=== PATIENT | female | born 1950 | race Caucasian/White ===

== ENCOUNTER 2020-05-28 16:07 | Outpatient (REF) | payer MEDICARE, SELFPAY | END 2020-05-28 16:08 | disposition home or self-care (01) | LOC: HO.LAB 16:07 | PROVIDERS: PCP Internal Medicine; Visit Provider Internal Medicine | DX: Z20.828 Contact with and (suspected) exposure to other viral communicable diseases (principal) | CPT/HCPCS: C9803; U0003 ==

== ENCOUNTER 2022-03-29 12:23 | Outpatient (REF) | payer MEDICARE, MEDICAID, SELFPAY ==
--- NOTE | ~2022-03-29 | XR_ITS ---
EXAMINATION: KNEE X-RAY CLINICAL INFORMATION: Right knee pain COMPARISON: Previous MRI January 2022 TECHNIQUE: Standing AP view of both knees and lateral and sunrise view of the right knee FINDINGS: Right: Bone alignment is normal. No fracture or dislocation is seen. Joint spaces are normal. There is no joint effusion. Standing AP view of the left knee is unremarkable. XR/XR knee RT 2V IMPRESSION: Unremarkable exam
--- NOTE | ~2022-03-29 | XR_ITS ---
EXAMINATION: KNEE X-RAY CLINICAL INFORMATION: Right knee pain COMPARISON: Previous MRI January 2022 TECHNIQUE: Standing AP view of both knees and lateral and sunrise view of the right knee FINDINGS: Right: Bone alignment is normal. No fracture or dislocation is seen. Joint spaces are normal. There is no joint effusion. Standing AP view of the left knee is unremarkable. XR/XR knee standing BI IMPRESSION: Unremarkable exam
== END 2022-03-29 12:24 | disposition home or self-care (01) ==
LOC: HO.HOSX 12:23
PROVIDERS: Visit Provider Physician Assistant
DX: M17.11 Unilateral primary osteoarthritis, right knee (principal); M25.562 Pain in left knee
CPT/HCPCS: 20610; 73560; 73565; 99202; J1020

== ENCOUNTER 2022-10-01 22:32 | Emergency (ER) | payer MEDICARE, MEDICAID, SELFPAY ==
--- NOTE | ~2022-10-01 | XR_ITS ---
EXAMINATION: XR CHEST CLINICAL INFORMATION: Cough COMPARISON: None available. TECHNIQUE: 2 views of the chest were obtained. FINDINGS: The lungs are well expanded. There is no focal consolidation, edema, or effusion. No pneumothorax. The cardiomediastinal silhouette is within normal limits. No acute osseous abnormality. XR/XR chest 2V IMPRESSION: Clear lungs.
[2022-10-01 22:36] VITALS: BP 138/87; PULSE 103; RESP 20; TEMP 36.5; O2SAT 93; BMI 27.8
[2022-10-01 23:45] VITALS: BP 114/73; PULSE 92; RESP 16; O2SAT 93
[2022-10-02 00:52] LABS: Basophils Percent Auto 0.5 % (0-2); Eosinophils Absolute Auto 0.1 X10*3/uL (0.0-0.4); Eosinophils Percent Auto 1.9 % (0-4); Hematocrit 37.7 % (37.0-47.0); Hemoglobin 13.2 g/dl (12.0-16.0); Imm Gran Abs Auto 0.01 X10*3/uL (0.00-0.03); Imm Gran Pct Auto 0.2 % (0.0-0.4); Lymphocytes Absolute Auto 1.6 X10*3/uL (1.2-4.9); MANUAL DIFF FLAG SCAN; Mean Corpuscular Hemoglobin 28.6 pg (27.0-33.0); Mean Corpuscular Volume 81.8 fL (80.0-98.0); Mean Platelet Volume 9.7 fL (9.4-12.3); Monocytes Absolute Auto 0.4 X10*3/uL (0.1-1.2); Monocytes Percent Auto 9.3 % (2-11); Neutrophils Absolute Auto 2.2 x10*3/uL (2.0-8.3); Neutrophils Percent Auto 50.1 % (45-73); Platelet Count 161 X10*3/uL (160-400); Red Blood Count 4.61 X10*6/uL (4.20-5.50); Red Cell Distribution Width 13.1 % (11.0-16.0); SCAN SMEAR FLAG 1; White Blood Count 4.3 X10*3/uL (4.8-10.8)
[2022-10-02 01:04] VITALS: PULSE 90; RESP 16; O2SAT 93
[2022-10-02 01:11] LABS: Alanine Aminotransferase 25 U/L (0-31); Albumin Level 4.2 g/dL (3.5-5.0); Alkaline Phosphatase 128 U/L (39-117); Anion Gap 19 (12-20); Aspartate Amino Transferase 27 U/L (5-31); Bilirubin Total 0.9 mg/dL (0.0-1.0); Blood Urea Nitrogen 11 mg/dL (9-16); Calcium 8.9 mg/dL (8.4-10.2); Carbon Dioxide 23 mmol/L (22-29); Chloride 100 mmol/L (96-108); Estimated Glomerular Filt Rate > 60; Glucose Random 208 mg/dL (60-115); Potassium 3.6 mmol/L (3.3-5.1); Sodium 138 mmol/L (135-145); Total Protein 7.1 g/dL (6.5-8.0)
[2022-10-02 01:23] LABS: SLIDE REVIEW VERIFIED
[2022-10-02 01:33] LABS: Influenza A PCR NEGATIVE (Negative); Influenza B PCR NEGATIVE (Negative); Resp Syncy Virus RNA Qual PCR NEGATIVE (Negative); SARS COV2 PCR INHOUSE NEGATIVE (Negative)
--- NOTE | 2022-10-02 01:38 | ED.GENADULT ---
HPI - General Adult General Chief complaint: General Medical Stated complaint: Cough Time Seen by Provider: 10/02/22 00:05 Source: patient Mode of arrival: ambulatory Limitations: no limitations History of Present Illness HPI narrative: Patient past medical history of hypertension, diabetes, been coughing for last 1 week seen at urgent care center prescribed albuterol inhaler no antibiotic or prednisone given patient continued to been coughing a low-grade fever and upper back pain patient tested for COVID negative Related Data Home Medications Medication Instructions Recorded Confirmed atorvastatin 40 mg tablet 40 mg PO DAILY 03/29/22 03/29/22 metformin 500 mg tablet 500 mg PO DAILY 03/29/22 03/29/22 metoprolol succinate 50 mg 50 mg PO DAILY 03/29/22 03/29/22 tablet,extended release 24 hr omeprazole 20 mg capsule,delayed 20 mg PO DAILY 03/29/22 03/29/22 release oxycodone 10 mg tablet 10 mg PO BID PRN 03/29/22 03/29/22 Previous Rx's Medication Instructions Recorded cefuroxime axetil 500 mg tablet 500 mg PO BID #20 tabs 10/02/22 codeine 10 mg-guaifenesin 100 mg/5 10 ml PO Q6H PRN cough #237 mL 10/02/22 mL oral liquid doxycycline hyclate 100 mg tablet 100 mg PO BID #20 tabs 10/02/22 prednisone 20 mg tablet 40 mg PO DAILY #10 tabs 10/02/22 Allergies Allergy/AdvReac Type Severity Reaction Status Date / Time No Known Allergies Allergy Mild N/A Unverified 03/29/22 14:34 Review of Systems Review of Systems: Constitutional : No Weight loss, + Fever, No Chills ENT/Mouth : No sore throat, No Rhinorrhea Eyes: No Eye Pain, No Swelling Cardiovascular : No Chest Pain, no palpitations Respiratory : ++Cough, No Sputum, + shortness of breath Gastrointestinal : no Nausea, No Vomiting, No Diarrhea, No abdominal Pain, no black stools Genitourinary : No Dysuria, No Urinary Frequency Musculoskeletal : No joint pain, No Myalgias, No Joint Swelling Skin : No Skin Lesions, No rash Neuro : No Weakness, No Numbness, No Dizziness, No Headache Psych : No Anxiety/Panic, No Depression Heme/Lymph: No Bruising, No Lymphadenopathy Endocrine : No Polyuria, No Polydipsia All other systems reviewed and are negative Yes all other systems are reviewed and are negative [facility] Social History Social History Alcohol intake: never Smoked in Last 30 Days: No Use of substances other than those prescribed or required for medical reasons: No Advance Directives: No Advance Directives Information Provided: No Current occupational status: retired Current occupation: right handed Physical Exam ED Vital Signs: Vital Signs - 24 hr 10/01/22 22:36 10/01/22 23:45 10/02/22 01:04 Temperature 97.7 F Pulse Rate 103 H 92 90 Respiratory Rate 20 16 16 Blood Pressure 138/87 114/73 Pulse Oximetry 93 93 Oxygen Delivery Method Room Air Room Air BMI result Body Mass Index 27.8 Appearance: Alert. Oriented X3. No acute distress. Coughing frequently Eyes: No pallor/icterus ENT: Pharynx normal. Oral Mucosa moist Neck: Normal inspection. Neck supple. CVS: Normal heart rate and rhythm. Pulses normal. Respiratory: No respiratory distress. Equal air entry bilateral, bilateral wheezing with coarse crackles mostly in the midline Abdomen: Soft and nontender. Bowel sounds are present, no mass palpable, no CVA tenderness Skin: Skin warm and dry. Normal skin color. Normal skin turgor. Extremities: No lower extremity edema. No calf tenderness Neuro: Oriented X 3. No motor deficit. Medications Administered Discontinued Medications Generic Name Dose Route Start Last Admin Trade Name Freq PRN Reason Stop Dose Admin Acetaminophen 650 mg 10/02/22 00:51 10/02/22 01:42 Acetaminophen 325 Mg Tablet PO 10/02/22 00:52 650 mg ONCE ONE Administration Cefuroxime Axetil 500 mg 10/02/22 02:06 10/02/22 02:20 Cefuroxime Axetil 500 Mg Tablet PO 10/02/22 02:07 500 mg ONCE ONE Administration Albuterol Sulfate 5 mg/ 0 mg 10/02/22 00:51 10/02/22 00:59 Ipratropium [place] 0.5 mg INHALE 10/02/22 00:52 1 each ONCE ONE Administration Dexamethasone 10 mg 10/02/22 02:06 10/02/22 02:20 Dexamethasone 2 Mg Tablet PO 10/02/22 02:07 10 mg ONCE ONE Administration Doxycycline Monohydrate 100 mg 10/02/22 02:06 10/02/22 02:20 Doxycycline Monohydrate 100 Mg Capsule PO 10/02/22 02:07 100 mg ONCE ONE Administration Guaifenesin/Codeine Phosphate 10 ml 10/02/22 00:51 10/02/22 01:42 Guaifen/Codeine Sf 200/20/10ml 10 Ml Liquid PO 10/02/22 00:52 10 ml ONCE ONE Administration Medical Decision Making Medical Decision Making [facility] Narrative: Patient with clinically acute bronchitis chest x-ray negative labs stable sustained 3-94% room air will discharge patient on prednisone and antibiotics advised to continue albuterol inhaler Differential Diagnosis Pneumonia/COVID/influenza/bronchitis Lab Data [facility] Lab Attestation statement: I reviewed the patient's lab results. 10/02/22 00:46 10/02/22 00:46 Labs: Lab Results 10/02/22 10/02/22 10/02/22 Range/Units 00:46 00:46 00:46 WBC 4.3 L (4.8-10.8) X10*3/uL RBC 4.61 (4.20-5.50) X10*6/uL Hgb 13.2 (12.0-16.0) g/dl Hct 37.7 (37.0-47.0) % MCV 81.8 (80.0-98.0) fL MCH 28.6 (27.0-33.0) pg MCHC 35.0 (31.0-35.0) g/dl RDW 13.1 (11.0-16.0) % Plt Count 161 (160-400) X10*3/uL MPV 9.7 (9.4-12.3) fL Immature Gran % (Auto) 0.2 (0.0-0.4) % Neut % (Auto) 50.1 (45-73) % Lymph % (Auto) 38.0 (20-40) % Bailey % (Auto) 9.3 (2-11) % Eos % (Auto) 1.9 (0-4) % Baso % (Auto) 0.5 (0-2) % Lymph # (Auto) 1.6 (1.2-4.9) X10*3/uL Bailey # (Auto) 0.4 (0.1-1.2) X10*3/uL Eos # (Auto) 0.1 (0.0-0.4) X10*3/uL Baso # (Auto) 0.0 (0.0-0.2) X10*3/uL Abs Immat Gran (auto) 0.01 (0.00-0.03) X10*3/uL Absolute Neuts (auto) 2.2 (2.0-8.3) x10*3/uL Absolute Nucleated RBC 0.000 (0.0-0.012) X10*3/uL Nucleated RBC % (auto) 0.0 (0.0-0.2) /100WBC Smear Tech's Comments VERIFIED Sodium 138 (135-145) mmol/L Potassium 3.6 (3.3-5.1) mmol/L Chloride 100 (96-108) mmol/L Carbon Dioxide 23 (22-29) mmol/L Anion Gap 19 (12-20) BUN 11 (9-16) mg/dL Creatinine 0.77 (0.5-1.4) mg/dL Estim Creat Clear Calc 87.0 Estimated GFR > 60 Random Glucose 208 H (60-115) mg/dL Calcium 8.9 (8.4-10.2) mg/dL Total Bilirubin 0.9 (0.0-1.0) mg/dL AST 27 (5-31) U/L ALT 25 (0-31) U/L Alkaline Phosphatase 128 H (39-117) U/L Total Protein 7.1 (6.5-8.0) g/dL Albumin 4.2 (3.5-5.0) g/dL Influenza Type A (PCR) NEGATIVE (Negative) Influenza Type B (PCR) NEGATIVE (Negative) RSV RNA Qual (PCR) NEGATIVE (Negative) SARS-CoV-2 RNA (RT-PCR) NEGATIVE (Negative) Discharge Plan Discharge Clinical Impression: Acute infective tracheobronchitis Patient Disposition: Home, Self-Care Instructions: Acute Bronchitis (ED) Additional Instructions: Continue to use your inhaler 2 puffs every 4-6 hours as needed Antibiotic and prednisone as prescribed A blood sugar may go high while taking prednisone increase the dose of metformin to 2 times a day instead of once while taking prednisone Cough drops as adv Follow-up with PCP as needed Prescriptions: New codeine-guaifenesin 10-100 mg/5 mL liquid 10 ml PO Q6H PRN (Reason: cough) Qty: 237 0RF cefuroxime axetil 500 mg tablet 500 mg PO BID Qty: 20 0RF doxycycline hyclate 100 mg tablet 100 mg PO BID Qty: 20 0RF prednisone 20 mg tablet 40 mg PO DAILY Qty: 10 0RF No Action omeprazole 20 mg capsule,delayed release(DR/EC) 20 mg PO DAILY metformin 500 mg tablet 500 mg PO DAILY atorvastatin 40 mg tablet 40 mg PO DAILY metoprolol succinate 50 mg tablet extended release 24 hr 50 mg PO DAILY oxycodone 10 mg tablet 10 mg PO BID PRN Interventions: ED Discharge Assessment Last Done: 10/02/22 02:27 Discharge Date/Time: 10/02/22 02:28
[2022-10-02] MEDS: guaiFEN/Codeine SF 200/20/10ML 10 ML LIQUID PO (01:42)
[2022-10-02] MEDS: Acetaminophen 325 MG TABLET 650 MG PO (01:42)
[2022-10-02] MEDS: Doxycycline Monohydrate 100 MG CAPSULE PO (02:20)
[2022-10-02] MEDS: dexAMETHasone 2 MG TABLET 10 MG PO (02:20)
== END 2022-10-02 02:28 | disposition home or self-care (01) ==
PROVIDERS: Emergency Provider Internal Medicine; PCP Internal Medicine
DX: J20.9 Acute bronchitis, unspecified (principal); Z20.822 Contact with and (suspected) exposure to COVID-19; Z20.828 Contact with and (suspected) exposure to other viral communicable diseases; Z79.02 Long term (current) use of antithrombotics/antiplatelets; Z79.84 Long term (current) use of oral hypoglycemic drugs; Z79.899 Other long term (current) drug therapy
CPT/HCPCS: 0241U; 71046; 80053; 85025; 94640; 99284; 99285; J8540

== ENCOUNTER → 2024-03-02 09:57 | Outpatient (REF) | payer MEDICARE, SELFPAY ==
--- NOTE | 2024-03-02 10:01 | CA_ITS ---
Acquisition Time: 2024-03-02 10:09:21 Total Exercise Time: 00:05:01 Test Indications: CP Medications: ATORVASTATIN METFORMIN METOPROLOL Protocol: LUCY Max HR: 148 BPM 99% of Pred: 149 BPM Max BP: 180/090 mmHG Max Work Load: 5.2 METS Exercise stress test exercise 5 min 1 sec of Lucy protocol (stage 2 manually increased) achieving 99% MPHR, with mild to moderate SOB, 4/10 chest discomfort at baseline, no change, with isolated PACs and PVCs and ventricular cuplet, with normotensive response to exercise, with brisk HR response, without EKG changes. Breathing returned to baseline. Test reviewed with Dr. Patel. Referred By: Gaby Ngo Overread By: Annita Tai
== END ==
LOC: HO.CARD 09:57
PROVIDERS: PCP Internal Medicine; Visit Provider Internal Medicine
DX: R07.9 Chest pain, unspecified (principal)
CPT/HCPCS: 93017

== ENCOUNTER → 2024-03-02 10:01 | Outpatient (BNV) | payer MEDICARE, SELFPAY | PROVIDERS: PCP Internal Medicine; Visit Provider Nurse Practitioner | DX: R06.02 Shortness of breath (principal); R07.9 Chest pain, unspecified; I49.1 Atrial premature depolarization; I49.3 Ventricular premature depolarization | CPT/HCPCS: 93016; 93018 ==

== ENCOUNTER 2025-06-22 13:57 | Emergency (ER) | payer MEDICARE, MEDICAID, SELFPAY ==
--- NOTE | ~2025-06-22 | CT_ITS ---
CLINICAL HISTORY: fall with head strike, collared CT cervical spine without contrast Comparison: None provided Findings: Vertebral alignment is within normal limits. Moderate spondylosis with disc space narrowing, endplate sclerosis, osteophytosis, and facet arthropathy, most notably at C5-C6 and C6-C7 levels. No acute fractures or dislocations. No acute findings on limited view of the intracranial contents. Soft tissues of the neck are normal. No consolidation or effusion at the lung apices. IMPRESSION: No acute findings. Moderate spondylosis at C5-C6 and C6-C7 levels with moderate to severe spinal canal and neural foraminal narrowings. This document has been electronically signed by: Zac Plascencia MD on 06/22/2025 17:50:10
--- NOTE | ~2025-06-22 | XR_ITS ---
CLINICAL HISTORY: pain after fall 2 view right shoulder Comparison: None provided Findings: Acute impacted and displaced fracture of the right humeral neck. No erosions. No radiopaque foreign body. IMPRESSION: Acute impacted and displaced fracture of the right humeral neck. This document has been electronically signed by: Zac Plascencia MD on 06/22/2025 19:34:04
--- NOTE | ~2025-06-22 | CT_ITS ---
CLINICAL HISTORY: fall with head strike CT head without contrast Comparison: None provided Findings: No intra-axial mass, midline shift, hydrocephalus, or acute hemorrhage. No significant atrophy-like change or white matter disease. The visualized paranasal sinuses and mastoid air cells are normal. The orbits are within normal limits. There is no acute fracture. IMPRESSION: 1. No acute intracranial findings specifically no acute intracranial hemorrhage. This document has been electronically signed by: Zac Plascencia MD on 06/22/2025 17:50:42
--- NOTE | ~2025-06-22 | XR_ITS ---
CLINICAL HISTORY: fall, pain 3 view right hand Comparison: None provided Findings: Bones intact. No dislocations. Moderate to severe degenerative disease most notably of the interphalangeal joints with joint space narrowing and osteophytosis. No erosions. No radiopaque foreign body. IMPRESSION: 1. No acute findings 2. 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 This document has been electronically signed by: Zac Plascencia MD on 06/22/2025 19:28:25
--- NOTE | ~2025-06-22 | XR_ITS ---
CLINICAL HISTORY: fall, distal radius tenderness 3 view right wrist Comparison: None provided Findings: No fractures or dislocations. Moderate to severe DJD of the intercarpal, and carpometacarpal joints most notably of the STT joint, and 1st and 2nd carpometacarpal joints. No radiopaque foreign body. IMPRESSION: 1. No acute findings. 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 This document has been electronically signed by: Zac Plascencia MD on 06/22/2025 19:30:41
--- NOTE | 2025-06-22 14:13 | ED_ITS ---
HPI - General Adult General Chief complaint: Fall Stated complaint: SLIPPED AND FELL R SHOULDER PAIN Time Seen by Provider: 06/22/25 14:12 Source: patient, EMS, RN notes reviewed and old records reviewed Mode of arrival: EMS Limitations: no limitations History of Present Illness ED Provider: Rell HPI narrative: Patient is a 74-year-old female presenting to the emergency department with complaint of right shoulder and wrist pain after a trip and fall prior to arrival. Patient states that they were talking a truck and the change were on, she was walking around the truck and forgot the chain was there and tripped over it. She reports positive head strike but denies loss of consciousness. States right shoulder pain is primary area of concern. Arrives in C-collar from EMS. MD complaint: right shoulder injury Related Data Home Medications ?Medication ?Instructions ?Recorded ?Confirmed atorvastatin 40 mg tablet 40 mg PO DAILY 03/29/2203/18 metformin 500 mg tablet 500 mg PO DAILY 03/29/2207/08 metoprolol succinate 50 mg 50 mg PO DAILY 03/29/2207/08 tablet,extended release 24 hr omeprazole 20 mg capsule,delayed 20 mg PO DAILY 03/29/22 release oxycodone 10 mg tablet 10 mg PO BID PRN 03/29/22 Previous Rx's ?Medication ?Instructions ?Recorded cefuroxime axetil 500 mg tablet 500 mg PO BID #20 tabs 10/02/22 codeine 10 mg-guaifenesin 100 mg/5 10 ml PO Q6H PRN co ugh #237 mL 10/02/22 mL oral liquid doxycycline hyclate 100 mg tablet 100 mg PO BID #20 ta bs 10/02/22 prednisone 20 mg tablet 40 mg (2 x 20 mg) PO DAILY # 10 tabs 10/02/22 morphine 15 mg immediate release 15 mg PO Q6H PRN pain (scale score 06/22/25 tablet 7-10) 3 days #9 tabs Allergies Allergy/AdvReac Type Severity Reaction Status Date / Time No Known Allergies Allergy Mild N/A Verified 06/22/25 14:19 Review of Systems Review of Systems: as per hpi Yes all other systems are reviewed and are negative Constitutional: Constitutional: [facility] Social History Social History Alcohol intake: never Advance Directives: No Advance Directives Information Provided: Yes Do you have a plan to hurt others: No Plan Current occupational status: retired Current occupation: right handed Physical Exam ED Vital Signs: Vital Signs - 24 hr 06/22/25 14:17 06/22/25 20:18 06/22/25 20:38 Temperature 97.7 F 97.7 F 97.7 F Pulse Rate 83 86 86 Respiratory Rate 18 16 16 Blood Pressure 144/84 H 149/56 H 149/56 H Pulse Oximetry 94 94 94 Oxygen Delivery Method Room Air Room Air Room Air BMI result Body Mass Index 27.0 Const General: cooperative, healthy appearing and no acute distress Orientation/consciousness: oriented to person, oriented to place, oriented to time and patient oriented x3 Limitations: no limitations HENMT Head: Yes normocephalic and Yes atraumatic Ears: external ears normal General nose exam: Normal external nose present Face and sinus: Yes face symmetric Mouth: oropharynx normal and moist mucous membranes Throat: Yes uvula midline Eyes Pupils: Equal, round and reactive pupils present Neck Neck: Yes normal visual inspection and Yes supple Resp Effort & Inspection: normal respiratory effort and able to speak in complete sentences Auscultation: clear to auscultation bilaterally Cardio Rate: regular rate Rhythm: regular rhythm Heart sounds: S1 normal heart sound present and S2 normal heart sound present GI Palpation (GI): Soft to palpation and nontender Auscultation: normoactive bowel sounds General: Yes no CVA tenderness Back/Spine/Pelvis Back: no CVA tenderness Cervical Spine: collar present Skin General skin exam: elasticity normal and turgor normal Neuro General: oriented to person, oriented to place, oriented to time, patient oriented x3, moves all extremities, no focal motor deficits and CN's II-XI intact bilaterally Cranial nerves: Yes Equal, round and reactive pupils present Cognition (Neuro): normal cognition Extrem General: Yes full ROM, Yes no pedal edema and Yes no calf tenderness Right upper extremity: shoulder/upper arm Details: tenderness and deformity Location: of the shoulder joint, wrist Details: tenderness Location: of the distal radius and normal vascular exam and Extremity exam: right hand Details: vascular exam Details: radial pulse present, ulnar pulse present and normal capillary refill and normal ROM of fingers Psych Mental Status: mental status grossly normal Affect: normal affect Thought process: Normal thought process present Medications Administered Discontinued Medications Generic Name Dose Route Start Last Admin Trade Name oRsalia PRN Reason Stop Dose Admin Morphine Sulfate 4 mg 06/22/25 14:17 06/22/25 14:32 Morphine Sulfate 4 Mg/Ml Cartridge IVPUSH 06/22/25 14:18 4 mg ONCE ONE Administration Protocol Morphine Sulfate 4 mg 06/22/25 15:49 06/22/25 15:55 Morphine Sulfate 4 Mg/Ml Cartridge IVPUSH 06/22/25 15:50 4 mg ONCE ONE Administration Protocol Morphine Sulfate 4 mg 06/22/25 18:40 06/22/25 18:45 Morphine Sulfate 4 Mg/Ml Cartridge IVPUSH 06/22/25 18:41 4 mg ONCE ONE Administration Protocol Ondansetron HCl 4 mg 06/22/25 14:17 06/22/25 14:32 Ondansetron Hcl 4 Mg/2 Ml Vial IVPUSH 06/22/25 14:18 4 mg ONCE ONE Administration Procedures Orthopedic Splinting/Casting Injury #1: Side: right Upper Extremity Injury Location: upper arm Upper Extremity Immobilizer: sling/shoulder immobilizer Medical Decision Making Medical Decision Making MDM Narrative: Patient is a 74-year-old female presenting to the emergency department with complaint of right shoulder and wrist pain after a trip and fall prior to arrival. On exam patient is awake, A+Ox3, VS WNL, afebrile, normal neurological exam without focal deficits, physical exam findings as above. Given reported symptoms and physical exam findings, initial differential includes but is not limited to ICH, skull or cervical vertebral fracture subluxation, right shoulder fracture, dislocation, sprain, right wrist strain, sprain, fracture. CT head and c-spine notable for no evidence of ICH, skull fracture, cervical vertebral fracture or subluxation, moderate spondylosis with canal narrowing noted. C- collar cleared and removed. My interpretation is in agreement with the radiologist's interpretation. Patient signed out to [id number] Lopes pending results of x-rays. 7:36 PM 06/22/2025 (Marianne Boss PA-C): XR shoulder RT min 2V IMPRESSION: Acute impacted and displaced fracture of the right humeral neck. > sling applied. 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 Will discharge home with pain control and close PCP follow-up XR wrist RT min 3V IMPRESSION: 1. No acute findings. 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 XR hand RT min 3V IMPRESSION: 1. No acute findings 2. 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 9:57 AM 06/23/2025 (Annika Izaguirre PA-C): Pt was prescribed morphine but has been receiving Percocet 7.5mg (100 tablets); pharmacy called ask a if this was an okay prescription refilled. Given that she is already on narcotic medication, this is ill advised. Discussed with pharmacist to not fill this medication Differential Diagnosis Differential Diagnoses: The differential diagnosis associated with the presentation includes as per [facility] Admission/Observation Consideration of admission/observation: Escalation of care including admission/observation considered Patient would have been admitted to the hospital and transferred to appropriate facility had their clinical presentation warranted hospital admission. Independent Interpretation I performed an independent interpretation of an: CT Scan Interpretation: CT head and c-spine notable for no evidence of ICH, skull fracture, cervical vertebral fracture or subluxation, moderate spondylosis with canal narrowing noted. Radiology Impression Discussion of test interpretation with radiology: I have reviewed the radiologist's reading. Radiologist Impression: CT cervical spine without contrast Comparison: None provided Findings: Vertebral alignment is within normal limits. Moderate spondylosis with disc space narrowing, endplate sclerosis, osteophytosis, and facet arthropathy, most notably at C5-C6 and C6-C7 levels. No acute fractures or dislocations. No acute findings on limited view of the intracranial contents. Soft tissues of the neck are normal. No consolidation or effusion at the lung apices. IMPRESSION: No acute findings. Moderate spondylosis at C5-C6 and C6-C7 levels with moderate to severe spinal canal and neural foraminal narrowings. CT head without contrast Comparison: None provided Findings: No intra-axial mass, midline shift, hydrocephalus, or acute hemorrhage. No significant atrophy-like change or white matter disease. The visualized paranasal sinuses and mastoid air cells are normal. The orbits are within normal limits. There is no acute fracture. IMPRESSION: 1. No acute intracranial findings specifically no acute intracranial hemorrhage. External Record Review External record reviewed: Inpatient record, Office record and Outpatient record Discharge Plan Discharge Clinical Impression: Fracture of neck of right humerus Patient Disposition: Home, Self-Care Instructions: Arm Fracture in Adults (DC) Additional Instructions: Your x-ray shows an impacted and displaced fracture of your right humeral neck. You need to wear sling and follow-up with audio specialist. Please call Tuesday to make an appointment You may take sling off to shower Please continue to range of motion your fingers, hand/wrist and elbow at least every hour so you do not develop frozen joints Morphine as an opiate pain medication, take only when pain is severe for the next 3 days In addition take Tylenol and ibuprofen at home If pain is too severe, you fever, numbness, weakness return to the emergency department Prescriptions: New morphine 15 mg tablet 15 mg PO Q6H PRN (Reason: pain (scale score 7-10)) 3 Days Qty: 9 0RF Rx Instructions: Partial Fill upon patient request. No Action codeine-guaifenesin 10-100 mg/5 mL liquid 10 ml PO Q6H PRN (Reason: cough) Qty: 237 0RF cefuroxime axetil 500 mg tablet 500 mg PO BID Qty: 20 0RF doxycycline hyclate 100 mg tablet 100 mg PO BID Qty: 20 0RF prednisone 20 mg tablet 40 mg PO DAILY Qty: 10 0RF omeprazole 20 mg capsule,delayed release(DR/EC) 20 mg PO DAILY metformin 500 mg tablet 500 mg PO DAILY atorvastatin 40 mg tablet 40 mg PO DAILY metoprolol succinate 50 mg tablet extended release 24 hr 50 mg PO DAILY oxycodone 10 mg tablet 10 mg PO BID PRN Referrals: [facility] [Provider Group] - 5 days Interventions: ED Discharge Assessment Last Done: 06/22/25 20:38 Discharge Date/Time: 06/22/25 20:39 Print Language: Bulgarian
[2025-06-22 14:17] VITALS: BP 144/84; PULSE 83; RESP 18; TEMP 36.5; O2SAT 94; BMI 27.0
--- NOTE | 2025-06-22 14:37 | PC.NURSE ---
patient presents to the ED after sustaining a fall at home, patient states she tripped over a chain that was outside and fell. patient states she hit her head, no loc, noted to have hematoma to right side of head. patient denies being on blood thinners. patient is guarding right arm, states she has right shoulder and wrist pain. patient is alert and oriented x3, states pain is 10/10. #22 placed on left hand, medicated per SEP.
--- OUTSIDE RECORDS SUMMARY | 2025-06-22 14:40 | XMS_ITS | Continuity of Care Document ---
Author Organization [place] [facility], [facility] Address [address] [place] [address] Care Team Providers [facility] [place] Name Role Phone DELMA VELA Primary Care Provider DELMA VELA Referring Provider DELMA VELA Primary Care Provider Assessment Encounter Date Assessment Date Assessment LastModified by Organization Details LastModified Time 03/26/2025 03/26/2025 Patient's audiogram is demonstrating an asymmetric sensorineural hearing loss affecting the left ear greater than right. This is enough of an asymmetry to warrant retrocochlear workup. Recommend MRI scan of the brain and internal auditory canals with gadolinium. Patient reports significant problems with claustrophobia during previous MRI, so I sent prescription for clonazepam to be taken around the time of her MRI scan. We will arrange this for the patient. If the scan is negative I will let the patient know via telephone message. If there are any significant abnormalities, we can arrange telehealth visit to discuss the results. There is enough hearing loss to affect day-to-day hearing performance. We discussed in detail the pros and cons of amplification (hearing aids). We discussed the connection between untreated hearing loss and increased risk of dementia, falling and accidents. After full discussion, the patient expressed interest in learning more about amplification options. Accordingly we will set them up for a hearing aid evaluation. Patient is medically cleared for amplification bilaterally. [email or web address] Not available 03/26/2025 11:32:21 Plan of Treatment Reminders Order Date Submit Date Provider Last Modified By Organization Details Last Modified Time Details Appointments None recorded. Lab None recorded. Referral None recorded. Procedures None recorded. Surgeries None recorded. Imaging MRI, brain + internal auditory canal, w/wo contrast - MRI, BRAIN + INTERNAL AUDITORY CANAL, W/WO CONTRAST 2024 025 [email or web address] [facility] ([facility]), [address], [place], [address], 15:35:53 Medication Orders clonazepam 1 mg disintegrat ing tablet 2024 025 [id number], [address], [place], [phone], 11:23:50 Patient TargetsNo targets recorded. Patient Instructions Encounter Date Encounter Id Patient Instructions Last Modified By Organization Details Last Modified Time 03/26/2025 [id number] Follow up with risk and insurance manager for further diagnostic testing and confirmation of findings. Avoid relying on hearing aid providers without specialized care for inner ear issues. [email or web address] Not available 03/26/2025 11:30:03 Please note: Parts of this encounter note have been generated by AI based on audio conversation. Patient consent was required prior to utilizing this technology. Content review was required prior to finalizing the note. Not available 03/26/2025 11:30:03 Reason for Referral None Reported. Results Created Date Observation Date Name Description Value Unit Range Abnormal Flag Note LastModifiedBy Organization Detail LastModifiedTime 03/26/20 audio gram No observ ation record ed. BARCODE Not Available 2024 12:29:50 04/24/20 25 04/22/2025 MRI, brain + brain stem, w/wo contr ast [facility] Access ion Number : [id number] Jabari t Name: Gala Galloway e Tya l Record Number : [id number] Date of : 1950 Date of Exam: 2024 Referr ing Physic ned: Devang Byers re Ear Nose [address] [place] [address] Exam: MR Brain (C-/C+ ) CPT 04494 Room Descri ption: [facility] Verio 3.0T MRI Brain W+W/O Contra st INDICA TION / CLINIC AL QUESTI ON: Left-s ided hearin g loss. TECHNI QUE: MRI of the brain with attent ion to the internet sales director al audito ry canals was perfor med with and withou t contra st utiliz ing sagitt al T1, axial T2, axial FLAIR, axial 3D T2 CUBE, axial and araiza l T1, and post-c ontras t axial and araiza l T1-kayden ghted sequen jamal. 9 mL of Elucir em was admini stered intrav enousl y. COMPAR KING: MRI of the brain, 08/25/19 23. FINDIN GS: IAC: There is no mass or abnorm al enhanc ement in the internet sales director al audito ry canals or cerebe llopon tarah angles . Course and calibe r of the 7th and 8th crania l nerves is normal bilate rally. Fluid signal is preser valdez in the inner ear struct ures bilate rally. Brains tem demons trates normal signal . BRAIN and EXTRA- AXIAL SPACES : No signif icant abnorm ality of the visual ized portio ns of the brain and extra- axial spaces . 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 Minima l fluid is seen in both mastoi d tips. BONES: Visual ized marrow signal is preser valdez. IMPRES JONE: No retroc ochlea r abnorm ality to explai n the patien t?s sympto ms. WSN: [id number] Orderi ng Physic ned: Devang Byers P Electr onical ly Signed By: Awilda [email or web address] [facility] ([facility]) [address] [place], [address], 04/25/2025 16:19:38 05/23/20 25 08/27/2024 audio gram No observ ation record ed. [email or web address] Not Available 12/2024 10:16:52 Result Notes None recorded. Problems Name Problem SNOMED Code Status Onset Date Resolution Date Notes Provider Name and Address Organization Details Recorded Time Mixed conductive and sensorineural hearing loss, bilateral 749062588 Active 2024 SEKOU SMITH, AUD [address] [facility],[place] [address], [place], [address], [facility] [place] 5 10:14:59 Sensorineural hearing loss of bilateral ears 813363917 Active 2024 BARBER BYERS MD [address] [facility] [address], [place], [address], [facility] - [facility] [place] 11:32:35 Problem Notes None recorded. Procedures Surgical History Date Name Laterality Status Provider Name and Address Organization Details Recorded Time Comp Audio with Tymps & Reflexes - 37476 & 86052 completed ELIEZER PHILLIPS [address] [facility],[place] [address], [place], [address], [facility] - [facility] [place] 03/26/2025 10:14:51 Imaging Results None recorded. Procedure Notes None recorded. Medical Equipment None Reported. Allergies No known drug allergies Medications Name Sig Start Date Stop Date Status Note LastModified by Organization Details LastModified Time atorvastati n 40 mg tablet TAKE 1 TABLET BY MOUTH AT BEDTIME active Not Available Not Available No t Available doxycycline hyclate 100 mg capsule TAKE 1 CAPSULE BY MOUTH TWICE DAILY WITH A GLASS OF WATER AND DO NOT LIE DOWN FOR 30 MINUTES AFTER 03/26 completed Not Available Not Available Not Available fluconazole 150 mg tablet TAKE 1 TABLET BY MOUTH EVERY DAY 03/26 completed Not Available Not Available Not Available metoprolol succinate ER 50 mg tablet,exte nded release 24 hr TAKE 1 TABLET BY MOUTH DAILY active Not Available Not Available No t Available diclofenac ER 100 mg tablet,exte nded release 24 hr TAKE 2 TABLETS ON DAY 1 THEN 1 TABLET DAILY 03/26 completed Not Available Not Available Not Available dexamethaso ne 6 mg tablet 03/26 completed Not Available Not Available Not Available amoxicillin 500 mg tablet TAKE 1 TABLET BY MOUTH TWICE DAILY FOR 7 DAYS 03/26 completed Not Available Not Available Not Available cephalexin 500 mg capsule TAKE 1 CAPSULE BY MOUTH THREE TIMES DAILY FOR 7 DAYS 03/26 completed Not Available Not Available Not Available prednisone 50 mg tablet TAKE 1 TABLET BY MOUTH EVERY DAY 03/26 completed Not Available Not Available Not Available omeprazole 20 mg capsule,del ayed release TAKE 1 CAPSULE BY MOUTH EVERY MORNING BEFORE BREAKFAST active Not Available Not Available No t Available bisacodyl 5 mg tablet,kat yed release TAKE 2 TABLETS BY MOUTH RIGHT BEFORE BEGINING BOWEL PREP 03/26 completed Not Available Not Available Not Available mometasone 0.1 % topical ointment APPLY TOPICALLY TO THE AFFECTED AREA 1 TIME EACH DAY 03/26 completed Not Available Not Available Not Available metoprolol succinate ER 25 mg tablet,exte nded release 24 hr TAKE 1 TABLET BY MOUTH DAILY active Not Available Not Available No t Available oxycodone-a cetaminophe n 7.5 mg-325 mg tablet TAKE 1 TABLET BY MOUTH EVERY 8 HOURS NEEDED FOR PAIN. MAY TAKE 1 ADDITIONA L TABLET AT BEDTIME active Not Available Not Available No t Available methylpredn isolone 4 mg tablets in a dose pack FOLLOW PACKAGE DIRECTION S 03/26 completed Not Available Not Available Not Available metformin ER 500 mg tablet,exte nded release 24 hr 03/26 completed Not Available Not Available Not Available clonazepam 1 mg disintegrat ing tablet DISSOLVE 1 TABLET UNDER THE TONGUE 1 HOUR BEFORE MRI. MAY TAKE SECOND TABLET NEEDED active Not Available Not Available No t Available pregabalin 75 mg capsule active Not Available Not Available Not Available peg 3350-electr olytes 236 gram-22.74 gram-6.74 gram-5.86 gram solution MIX AND TAKE BY MOUTH DIRECTED active Not Available Not Available No t Available sodium,pota ssium,mag sulfates 17.5 gram-3.13 gram-1.6 gram oral soln MIX AND TAKE BY MOUTH DIRECTED active Not Available Not Available No t Available Ozempic 1 mg/dose (4 mg/3 mL) subcutaneou s pen injector INJECT 1 MG UNDER THE SKIN EVERY 7 DAYS active Not Available Not Available No t Available Ozempic 0.25 mg or 0.5 mg (2 mg/3 mL) subcutaneou s pen injector INJECT 0.5MG SUBCUTANE OUS ONCE WEEKLY 03/26 completed Not Available Not Available Not Available Vitals Date Recorded Body height Body weight Provider Name and Address Organization Details Last Updated DateTime 03/26/2025 182.88 cm 38792.74 g Lesly Ramos [place] [facility] 03/26/2025 10:22:16 Social History None recorded. Functional Status None recorded. Mental Status None recorded. Family History Nothing Reported. Medical History Condition Response Diabetes Y Migraines Y High Cholesterol Y Gynecological HistoryNo gynecological history recorded. Obstetrics History GPAL:G 0 P 0 0 0 0 Past Encounters Encounter ID Performer Location Encounter Start Date Encounter Closed Date Diagnosis/Indication Diagnosis SNOMED-CT Code Diagnosis ICD10 Code Diagnosis IMO Codes Diagnosis Note [id number] BARBER BYERS MD [facility] [address] [address] 03/26/2025 09:34:01 03/26/2025 11:31:23 Mixed conductive and sensorineural hearing loss, bilateral 045597522 H90.6 4991938 Sensorineu ral hearing loss of bilateral ears 631671360 H90.3 [id number] Audiologic al evaluation results: 03/26/2025Ri ght ear:Mild sloping to a moderate sensorineu ral hearing loss with excellent word recognitio n.Left ear:Modera te sloping to profound sensorineu ral hearing loss with excellent word recognitio n. Tympanomet ry:Right Ear:Type ALeft Ear:Type A Acoustic Reflex Testing: Signal to theRight Ear(uncros sed): AbsentSign al to theLeft Ear(uncros sed):Absen t Health Concerns Section Related Observation LastModified by Organization Detai ls LastModified Time None Recorded Concern Status LastModified by Organization Details LastModified Time None Recorded Payers Encounter Date Sequence Insurance Name Policy Number Policy Rodriguez Covered Member ID Rodriguez Member ID Guarantor Name 03/26/2025 1 [facility] (MEDICARE REPLACEMENT/A DVANTAGE - PPO) [id number] Doris Galloway [id number] Doris Galloway Notes Date Note Type Note Provider Name and Address Organization Details Recorded Time 03/26/2025 text/html Doris Galloway is a 74-year-old female who presents for hearing concerns, primarily in the left ear. She reports noticing worsening hearing in her left ear over the past few years, with a significant decline since July. During a social gathering, she realized she could only hear the person sitting to her right and struggled to follow conversations from others. Her daughter and girlfriend frequently comment on her difficulty hearing, particularly when seated to their right. She denies any history of earaches, pus, or discharge from her ears. She has no recollection of ear surgeries or procedures, though she experienced scarlet fever and rheumatic fever [id number] at age 17, which has affected her memory of earlier years. She occasionally feels her ear is blocked but has not experienced pain. She previously attempted using hydrogen peroxide drops for relief. She was referred to this clinic by a wool shearing supervisor who identified an inner ear problem and recommended evaluation by an green chain off bearer. BARBER BYERS MD [address] [place] [address], [place], [address], [facility] - [facility] 03/26/2025 11:33:35 OBGyn Episode No OBEpisode recorded.
--- OUTSIDE RECORDS SUMMARY | 2025-06-22 14:40 | XMS_ITS | Clinical Summary ---
Author Organization [address] Address [address] [place] [phone] Phone Care Team Providers Care Stock Layer Name Role Phone Gaby Ngo MD Primary Care Provider [phone] Allergies No known active allergies Medications lancets lancets To check fasting blood glucose every morning before breakfast 06/22/20 23 Active mometasone (ELOCON) 0.1 % ointment Apply topically 1 (one) time each day. 45 g 06/12/20 24 Active metoprolol succinate (TOPROL-XL) 25 mg 24 hr tablet Take 3 tablets (75 mg total) by mouth 1 (one) time each day. 12/25/19 25 Active semaglutide (OZEMPIC) 1 mg/dose (4 mg/3 mL) injection penIndications:Mayuri betes mellitus type 2 with neurological manifestations (CMS/HCC V24, CMS/HCC V28) Inject 1 mg under the skin every 7 (seven) days. 6 mL 1 02/17/20 25 Active multivitamin tablet Take 1 tablet by mouth 1 (one) time each day. Active cyanocobalamin (VITAMIN B-12) 1,000 mcg tablet Take 1 tablet (1,000 mcg total) by mouth 1 (one) time each day. UNSURE OF DOSE Active pregabalin (LYRICA) 75 mg capsule Take 1 capsule (75 mg total) by mouth 1 (one) time each day. Max Daily Amount: 75 mg 90 capsule 1 04/03/20 25 Active atorvastatin (LIPITOR) 40 mg tablet Take 1 tablet (40 mg total) by mouth at bedtime. at bedtime. 90 tablet 1 05/03/20 25 Active omeprazole (PriLOSEC) [address] capsule Take 1 capsule (20 mg total) by mouth 1 (one) time each day before breakfast. 90 capsule 1 05/03/20 25 Active oxyCODONE-acetamin ophen (PERCOCET) 7.5-325 mg per tablet Take 1 tablet by mouth every 8 (eight) hours. May also take 1 tablet at bedtime as needed for severe pain. Do all this for 28 days. Max Daily Amount: 4 tablets. 100 tablet 05/31/20 25 025 Active oxyCODONE-acetamin ophen (PERCOCET) 7.5-325 mg per tablet Take 1 tablet by mouth every 8 (eight) hours. May also take 1 tablet at bedtime as needed for severe pain. Max Daily Amount: 4 tablets. 100 tablet 05/03/20 25 025 Discontin ued(Reord er) Active Problems Problem Noted Date Diagnosed Date Tubular adenoma 12/24/2024 Overview (12/24/2024): 04/10/21: Repeat in 2 years Cystocele without uterine prolapse 11/17/2020 GERD (gastroesophageal reflux disease) Overweight (BMI 25.0-29.9) 09/05/2018 Abnormal Pap smear of cervix 06/05/2018 Overview (05/02/2024): HSIL 04/04 had colposcopy. 10/27/2018 Pap: unsatisfactory specimen, neg HPV may be false-negative. Diabetic neuropathy ([facility] V24, [facility] V28) 1 08/05/2017 Diabetes mellitus type 2 wit h neurological manifestations ([facility] V24, [facility] V28) 09/12/2017 Sacroiliitis, not elsewhere classified ([facility] V24) 08/26/2017 Chronic headaches 06/08/2011 HTN (hypertension) 06/08/2011 Anxiety 03/02/2011 Depressed 03/02/2011 Chronic low back pain 08/22/2007 Overview (05/02/2024): H/o DJD of the low back, Patient has been evaluated with MRI of the lumbar spine. Patient already had one surgery of the LS spine 2007 (TOPS device). Hypercholesterolemia 08/22/2007 Tachycardia 08/22/2007 Overview (05/02/2024): Negative stress on 2005. Fq PVC on Holter DJD (degenerative joint disease), lumbar Resolved Problems Problem Noted Date Diagnosed Date Resolved Date Meningioma ([facility]/HCC V24, [facility]/HCC V28) 2022 05/03/2025 Cancer Staging:Clinical: Unsigned Overview (09/13/2024): CT June 2022. Patient was referred for contrast brain MRI which did not show any enhancement. This was favored to reflect dural ossification over a small meningioma. Idiopathic progressive neuropathy 08/26/2017 09/19/2024 Encounters Date Type Department Care Team Description 05/03/2025 12:45 PM EDT Office Visit Adult Medicine [address] [phone] Gaby Ngo MD Primary hypertension (Primary Dx); Diabetes mellitus type 2 with neurological manifestations (CMS/HCC V24, CMS/HCC V28); Gastroesophageal reflux disease without esophagitis; Chronic low back pain, unspecified back pain laterality, unspecified whether sciatica present 05/02/2025 Results Follow-Up Adult Medicine [address] [phone] Roxy Geller PA 04/21/2025 Results Follow-Up Gastroenterology - [place] [address] [facility] [address] [facility] [address] [place] [address] Bennett Rodriguez MD from Last 3 Months Immunizations Immunization Administration Dates Next Due Influenza Quadravalent, 0.5m l (Fluad) 65yo and older 05/12/2021 Influenza Quadravalent, 0.5m l (Fluzone High-dose) 65yo and older 06/11/2020 Influenza Quadrivalent, with preservative (Fluzone; Afluria) 6mo and older 05/02/2019 Influenza trivalent, 0.5mL ( Fluad) 65yo and older 05/03/2025,03/21/2024,06/16/2023,06/15,05/12/2021,06/11/2020,04/24/2018 Influenza trivalent, 0.5mL ( Fluzone High-dose) 65yo and older 03/21/2024,06/16/2023,06/15/2022,04/24 Influenza trivalent, 0.5mL, preservative free (Fluarix; FluLaval; Fluzone) ages 6mo and older (Afluria) 3 years and older 05/02/2019,04/21/2017,04/12/2016,03/31,05/21/2014,03/21/2012,06/08/2011 Influenza trivalent, with pr eservative (Fluzone; Afluria) 6mo and older 03/31/2015,05/21/2014,06/04/2013,03/21,06/08/2011 Influenza, Unspecified 05/19/2021,04/21/2017 Pneumococcal conjugate 13 va lent (Prevnar 13, PCV13) 2mo and older 06/05/2018 Pneumococcal polysaccharide 23 valent (Pneumovax 23) 2yo and older 06/06/2019 TD, Adsorbed, Preservative Free 07/26/2019 Td Tetanus diptheria (Tdvax) 7yo and older 07/26/2019,12/07/2017 Tdap Tetanus diptheria acell ular pertussis (Boostrix; Adacel) 7yo and older 04/27/2014,08/22/2007 Surgical History Surgery Date Site/Laterality Comments BACK SURGERY low back surgery, 1996, and 03/2008 BUNIONECTOMY ESOPHAGOGASTRODUODENOSCOPY 04/20/2010 Normal esophagus, gastritis-biopsy:mild reactive gastropathy(HPylori-), normal duodenum-biopsy: increased intraepithelial lymphocytes supporting celiac sprue chamberlain stage I Medical History Medical History Date Comments Chronic low back pain 08/22/2007 H/o DJD of the low back, Patient has been evaluated with MRI of the lumbar spine. Abnormal Pap smear of cervix 06/05/2018 HSI L 04/04 had colposcopy. 10/27/2018 Pap: unsatisfactory specimen, neg HPV may be false-negative. Diabetic [place] [place] [facility] [place] 06/05/2018 Diabetes mellitus type 2 wit h neurological manifestations [place] [place] [facility] [place] 09/12/2017 Cystocele without uterine prolapse 11/17/2020 Hypercholesterolemia 08/22/2007 GERD (gastroesophageal reflux disease) DJD (degenerative joint disease), lumbar 014 Rheumatic fever Neuropathy Migraines Family History Medical History Relation Name Comments Heart attack Brother 1 Cirrhosis Brother 2 Breast cancer Daughter B/L. on chemo. mastectomy pending Heart attack Father lung cancer, di ed 64 Heart attack Mother Heart attack Sister Relation Name Status Comments Brother 1 Brother 2 Daughter Alive Father Mother DM, HTN, CAD, d ied 58 cad Sister Social History Tobacco Use Types Packs/Day Years Used Date Smoking Tobacco: Never Smokeless Tobacco: Never Tobacco Cessation:Counseling Given: Not Answered Alcohol Use Standard Drinks/Week Comments Yes 0 (1 standard drink = 0.6 oz pur e alcohol) Interpersonal Safety Answer Date Record ed Physical Abuse Unrecognized value 03/20/2025 Verbal Abuse Unrecognized value 03/20/2025 Comments Unknown Sex and Gender Information Value Date Recorded Sex Assigned at Female 03/04/2025 8:07 AM EDT Legal Sex Female 10:31 AM EST Gender Identity Female 03/04/2025 8:07 AM EDT Sexual Orientation Not on file Obstetrics History Para Term AB IAB SAB Ectopic Multiple Livin g Live Births 5 5 5 Date Outcome GA Total Labor Labor/2nd/3rd Weight Sex Type Anes PTL Linda A1 A5 Name Clin Term Term Term Term Term Last Filed Vital Signs Vital Sign Reading Time Taken Comments Blood Pressure 110/60 05/03/2025 12:44 PM EDT Pulse 86 05/03/2025 12:44 PM EDT Temperature 35.7 C (96.3 F) 05/03/2025 12:44 PM EDT Respiratory Rate 16 05/03/2025 12:44 PM EDT Oxygen Saturation 95% 05/03/2025 12:44 PM EDT Inhaled Oxygen Concentration - - Weight 88.5 kg (195 lb 1.6 oz) 05/03/2025 12:44 PM EDT Height 180.3 cm (5' 11 ) 05/03/2025 12:44 PM EDT Body Mass Index 27.21 05/03/2025 12:44 PM EDT Plan of Treatment Upcoming Encounters Date Type Department Care Team (Late st Contact Info) Description 06/25/2025 11:00 AM EST Office Visit Adult Medicine [address] [phone] Roxy Geller PA [address] [place], [place] 09/20/2025 3:00 PM EST Office Visit Obstetrics and Gynecology - [address] [phone] Gabrielle Ortega, [facility] [address] [place], [place] 10/02/2025 12:45 PM EDT Office Visit [address] [phone] Gaby Ngo MD [address] [place] [address] Health Maintenance Due Date Last Done Comments Diabetes: Annual Foot Exam 1962 Diabetes: Annual Retina Eye Exam 1962 RSV Immunization Adult Patients (1 - Risk 50-74 years 1-dose series) 2002 Zoster Vaccines (1 of 2) 2002 Social Influencers of Health Screening 06/26/2022 Depression Screening 07/18/2024 03/21/2024 Breast Cancer Screening 11/17/2024 11/18/19 23, 11/05/2021, 10/29/2020 COVID-19 Vaccine ( season) 2025 11/25/2020, 11/04/2020 Medicare Annual Wellness Visit 03/21/2025 03/21/2024 Diabetes: Annual Urine Albumin-Creatinine Ratio (uACR) 09/18/2025 09/18/2024, 07/22/2023 Diabetes: Blood Sugar Control Test (HGBA1C) 10/31/2025 05/02/2025, 12/17/2024, 09/18/2024, Additional history exists Falls Risk Assessment 03/20/2026 03/20/2025, 024 Diabetes: Annual GFR (Glomerular Filtration Rate) 05/02/2026 05/02/2025, 09/18/2024, 02/22/2024, Additional history exists Hypertension/CHF/CAD Annual BMP Blood Test 05/02/2026 05/02/2025, 09/18/2024, 02/22/2024, Additional history exists DTaP,Tdap,and Td Vaccines (6 - Td or Tdap) 07/26/2029 07/26/2019, 07/26/2019, 12/07/2017, Additional history exists Cholesterol Screening (Lipid Panel) 09/18/2029 09/18/2024, 06/16/2023 Osteoporosis Screening (Bone Density Screening) 11/13/2031 11/12/2021 Hepatitis C Screening Completed 01/17/2014 Pneumococcal Vaccine: 50+ Years Completed 06/06/2019, 06/05/2018 Colorectal Cancer Screening: Colonoscopy Completed 03/20/2025, 04/10/2021 Influenza Vaccine Completed 05/03/2025, , 03/21/2024, Additional history exists HIB Vaccines Aged Out No longer eligi ble based on patient's age to complete this topic HPV Vaccines Aged Out No longer eligi ble based on patient's age to complete this topic Hepatitis A Vaccines Aged Out No long er eligible based on patient's age to complete this topic Hepatitis B Vaccines Aged Out No long er eligible based on patient's age to complete this topic IPV Vaccines Aged Out No longer eligi ble based on patient's age to complete this topic MMR Vaccines Aged Out No longer eligi ble based on patient's age to complete this topic Meningococcal ACWY Vaccine Aged Out N o longer eligible based on patient's age to complete this topic Meningococcal B Vaccine Aged Out No l onger eligible based on patient's age to complete this topic RSV Immunization Patients Under 20 months Aged Out No longer eligible based on patient's age to complete this topic Varicella Vaccines Aged Out No longer eligible based on patient's age to complete this topic Procedures Procedure Name Priority Date/Time Associated Diagnosis Comments ECHO 05/21/2025 HEMOGLOBIN A1C Routine 05/02/2025 12:09 PM EDT Diabetes mellitus type 2 with neurological manifestations (CMS/HCC V24, CMS/HCC V28) Diabetic mononeuropathy associated with type 2 diabetes mellitus (CMS/HCC V24, CMS/HCC V28) BASIC METABOLIC PANEL Routine 05/02/2025 12:09 PM EDT Diabetes mellitus type 2 with neurological manifestations (CMS/HCC V24, CMS/HCC V28) COLONOSCOPY Routine 03/20/2025 10:28 AM EDT Hx of colonic polyps MICROALBUMIN CREATININE URINE RATIO Routine 09/18/2024 3:40 PM EST Diabetes mellitus type 2 with neurological manifestations (CMS/HCC V24, CMS/HCC V28) LIPID PANEL WITH REFLEX TO DIRECT LDL Routine 09/18/2024 3:40 PM EST Diabetes mellitus type 2 with neurological manifestations (CMS/HCC V24, CMS/HCC V28) Diabetic polyneuropathy associated with type 2 diabetes mellitus (CMS/HCC V24, CMS/HCC V28) Hypercholesterolemia DEPRESSION SCREENING Routine 03/21/2024 SCREENING MAMMOGRAPHY BI 2-VIEW BREAST INC CAD Routine 11/17/2022 4:19 PM EDT Encounter for screening mammogram for malignant neoplasm of breast DXA BONE DENSITY STUDY 1+ SITS AXIAL SKEL Routine 11/12/2021 1:37 PM EDT Encounter for screening for osteoporosis HEPATITIS C SCREENING Routine 01/17/2014 from Last 3 Months or Most Recently Relevant to Health Maintenance Results * Echo (05/21/2025) Anatomical Region Laterality Modality Other Provider [facility] CV HISTORICAL CONV PROCE DURES Final Result * (ABNORMAL) Hemoglobin A1c (05/02/2025 12:09 PM EDT) [facility] Hemoglobin A1C 6.5(H) <6.5 % LAB CHEMISTRY METHOD 05/02/2025 2:00 PM EDT [facility] Mean Bld Glu Estim. 140 mg/dL LAB CHEMISTRY METHOD 05/02/2025 2:00 PM EDT [facility] Blood Venous blood specimen / Unknown Venipuncture / Unknown 05/02/2025 12:09 PM EDT 05/02/2025 12:09 PM EDT us [facility] BLOOD ORDERABLES Final Re sult [facility] [address] [place] [address], [place] [phone] * (ABNORMAL) Basic metabolic panel (05/02/2025 12:09 PM EDT) [facility] Sodium 137 133 - 145 mmol/L LAB CHEMISTRY METHOD 05/02/2025 2:15 PM [facility] Potassium 4.0 3.5 - 5.5 mmol/L LAB CHEMISTRY METHOD 05/02/2025 2:15 PM [facility] Chloride 102 96 - 110 mmol/L LAB CHEMISTRY METHOD 05/02/2025 2:15 PM [facility] CO2 30 21 - 32 mmol/L LAB CHEMISTRY METHOD 05/02/2025 2:15 PM [facility] Anion Gap 5 3 - 11 LAB CHEMISTRY METHOD 05/02/2025 2:15 PM [facility] Glucose 147(H) 70 - 100 mg/dL LAB CHEMISTRY METHOD 05/02/2025 2:15 PM [facility] BUN 9 5 - 25 mg/dL LAB CHEMISTRY METHOD 05/02/2025 2:15 PM [facility] Creatinine 0.75 0.50 - 1.10 mg/dL LAB CHEMISTRY METHOD 05/02/2025 2:15 PM EDT [facility] eGFR 85 >=60 mL/min/1. 73m2 LAB CHEMISTRY METHOD 05/02/2025 2:15 PM EDT [facility] Comment:Calculation based on the Chronic Kidney Disease Epidemiology Collaboration (CKD-EPI) equation refit without adjustment for race. BUN/Creatinine Ratio 12.0 LAB CHEMISTRY METHOD 05/02/2025 2:15 PM EDT [facility] Calcium 8.9 8.5 - 10.5 mg/dL LAB CHEMISTRY METHOD 05/02/2025 2:15 PM EDT [facility] Blood Venous blood specimen / Unknown Venipuncture / Unknown 05/02/2025 12:09 PM EDT 05/02/2025 12:09 PM EDT us [facility] BLOOD ORDERABLES Final Re sult [facility] [address] [place] [address], * COLONOSCOPY Anesthesia - MAC; [facility] ENDOSCOPY (03/20/2025 10:28 AM EDT) Anatomical Region Laterality Modality Endoscopy 03/20/2025 10:0 4 AM EDT Impressions 03/20/2025 10:31 AM EDT - One diminutive polyp in the transverse colon, removed with a jumbo cold forceps. Resected and retrieved. - One 4 mm polyp in the transverse colon, removed with a cold snare. Resected and retrieved. - The examination was otherwise normal on direct and retroflexion views. Recommendation: - Discharge patient to home. - Await pathology results. - No repeat colonoscopy due to current age (66 years or older). Narrative 03/20/2025 10:31 AM EDT [facility] Patient Name: Papo Griggs Procedure Date: 03/20/2025 10:04 AM Date of : 1950 Age: 74 Gender: Female Note Status: Finalized Attending MD: Bennett Rodriguez MD, Procedure Date No Time: 03/20/2025 Procedure: Colonoscopy Indications: Screening for colorectal malignant neoplasm, inadequate bowel prep on last colonoscopy (more recent than 10 years ago) Providers: Bennett Rodriguez MD Referring MD: Bennett Rodriguez MD Medicines: Monitored Anesthesia Care Complications: No immediate complications. Estimated blood loss: Minimal. Estimated Blood Loss: Estimated blood loss was minimal. Procedure: Pre-Anesthesia Assessment: - Prior to the procedure, a History and Physical was performed, and patient medications and allergies were reviewed. The patient is competent. The risks and benefits of the procedure and the sedation options and risks were discussed with the patient. All questions were answered and informed consent was obtained. Patient identification and proposed procedure were verified by the physician, the nurse, the sack cleaner and the registered dietetic technician in the pre-procedure area in the endoscopy suite. Mental Status Examination: alert and oriented. Airway Examination: normal oropharyngeal airway and neck mobility. Respiratory Examination: clear to auscultation. CV Examination: normal. Prophylactic Antibiotics: The patient does not require prophylactic antibiotics. Prior Anticoagulants: The patient has taken no anticoagulant or antiplatelet agents. ASA Grade Assessment: II - A patient with mild systemic disease. After reviewing the risks and benefits, the patient was deemed in satisfactory condition to undergo the procedure. The anesthesia plan was to use monitored anesthesia care (MAC). Immediately prior to administration of medications, the patient was re-assessed for adequacy to receive sedatives. The heart rate, respiratory rate, oxygen saturations, blood pressure, adequacy of pulmonary ventilation, and response to care were monitored throughout the procedure. The physical status of the patient was re-assessed after the procedure. After I obtained informed consent, the scope was passed under direct vision. Throughout the procedure, the patient's blood pressure, pulse, and oxygen saturations were monitored continuously. The Colonoscope was introduced through the anus and advanced to the cecum, identified by appendiceal orifice and ileocecal valve. The colonoscopy was performed without difficulty. The patient tolerated the procedure well. The quality of the bowel preparation was good. Findings: The perianal and digital rectal examinations were normal. A diminutive polyp was found in the transverse colon. The polyp was sessile. The polyp was removed with a jumbo cold forceps. Resection and retrieval were complete. Estimated blood loss was minimal. A 4 mm polyp was found in the transverse colon. The polyp was sessile. The polyp was removed with a cold snare. Resection and retrieval were complete. Estimated blood loss was minimal. The exam was otherwise without abnormality on direct and retroflexion views. Procedure Code(s): --- Professional --- 97186, Colonoscopy, flexible; with removal of tumor(s), polyp(s), or other lesion(s) by snare technique [id number], 59, Colonoscopy, flexible; with biopsy, single or multiple Diagnosis Code(s): --- Professional --- D12.3, Benign neoplasm of transverse colon (hepatic flexure or splenic flexure) CPT copyright 2020 [employer]. All rights reserved. The codes documented in this report are preliminary and upon radiology specialist review may be revised to meet current compliance requirements. Bennett Rodriguez MD 03/20/2025 10:31:00 AM This report has been signed electronically.Bennett Rodriguez MD Number of Addenda: 0 Note Initiated On: 03/20/2025 10:04 AM Scope Withdrawal Time: 0 hours 10 minutes 22 seconds Scope In: 10:10:47 AM Scope Out: 10:28:33 AM Endoscopy Department at [facility] - [address] [place] [phone] Procedure Note Bennett Rodriguez MD - 03/20/2025 [facility] Patient Name: Papo Griggs Procedure Date: 03/20/2025 10:04 AM Date of : 1950 Age: 74 Gender: Female Note Status: Finalized Attending MD: Bennett Rodriguez MD, Procedure Date No Time: 03/20/2025 Procedure: Colonoscopy Indications: Screening for colorectal malignant neoplasm, inadequate bowel prep on last colonoscopy (morerecent than 10 years ago) Providers: Bennett Rodriguez MD Referring MD: Bennett Rodriguez MD Medicines: Monitored Anesthesia Care Complications: No immediate complications. Estimated blood loss: Minimal. Estimated Blood Loss: Estimated blood loss was minimal. Procedure: Pre-Anesthesia Assessment: - Prior to the procedure, a History and Physicalwas performed, and patient medications and allergieswere reviewed. The patient is competent. The risks and benefits of the procedure and the sedation optionsand risks were discussed with the patient. Allquestions were answered and informed consent was obtained. Patient identification and proposed procedure were verified by the physician, the nurse, theanesthetist and the registered dietetic technician in the pre-procedure area in the endoscopy suite. Mental Status Examination: alertand oriented. Airway Examination: normal oropharyngeal airway and neck mobility. Respiratory Examination: clear to auscultation. CV Examination: normal. Prophylactic Antibiotics: The patient does notrequire prophylactic antibiotics. Prior Anticoagulants: The patient has taken no anticoagulant or antiplatelet agents. ASA Grade Assessment: II - A patient withmild systemic disease. After reviewing the risks and benefits, the patient was deemed in satisfactory condition to undergo the procedure. The anesthesia plan was to use monitored anesthesia care (MAC). Immediately prior to administration of medications, the patient was re-assessed for adequacy to receive sedatives. The heart rate, respiratory rate, oxygen saturations, blood pressure, adequacy of pulmonary ventilation, and response to care were monitored throughout the procedure. The physical status ofthe patient was re-assessed after the procedure. After I obtained informed consent, the scope was passed under direct vision. Throughout theprocedure, the patient's blood pressure, pulse, and oxygen saturations were monitored continuously. The Colonoscope was introduced through the anus and advanced to the cecum, identified by appendiceal orifice and ileocecal valve. The colonoscopy was performed without difficulty. The patient tolerated the procedure well. The quality of the bowel preparation was good. Findings: The perianal and digital rectal examinations were normal. A diminutive polyp was found in the transversecolon. The polyp was sessile. The polyp was removed with a jumbo cold forceps. Resection and retrieval were complete. Estimated blood loss was minimal. A 4 mm polyp was found in the transverse colon. The polyp was sessile. The polyp was removed with acold snare. Resection and retrieval were complete. Estimated blood loss was minimal. The exam was otherwise without abnormality ondirect and retroflexion views. Procedure Code(s): --- Professional --- 71055, Colonoscopy, flexible; with removal of tumor(s), polyp(s), or other lesion(s) by snare technique [id number], 59, Colonoscopy, flexible; with biopsy,single or multiple Diagnosis Code(s): --- Professional --- D12.3, Benign neoplasm of transverse colon (hepatic flexure or splenic flexure) CPT copyright 2020 [employer]. All rights reserved. The codes documented in this report are preliminary and upon radiology specialist reviewmay be revised to meet current compliance requirements. Bennett Rodriguez MD 03/20/2025 10:31:00 AM This report has been signed electronically.Bennett Rodriguez MD Number of Addenda: 0 Note Initiated On: 03/20/2025 10:04 AM Scope Withdrawal Time: 0 hours 10 minutes 22 seconds Scope In: 10:10:47 AM Scope Out: 10:28:33 AM Endoscopy Department at [facility] - [address] [place] [phone] IMPRESSION: - One diminutive polyp in the transverse colon, removed with a jumbo cold forceps. Resected and retrieved. - One 4 mm polyp in the transverse colon, removedwith a cold snare. Resected and retrieved. - The examination was otherwise normal on directand retroflexion views. Recommendation: - Discharge patient to home. - Await pathology results. - No repeat colonoscopy due to current age (66years or older). us Bennett Rodriguez MD GI~PROCEDURE ORDERABLES Fin al Result * (ABNORMAL) Lipid panel with reflex to direct LDL (09/18/2024 3:40 PM EST) Cholesterol 171 0 - 200 mg/dL LAB CHEMISTRY METHOD 09/18/2024 6:37 PM EST [facility] Triglycerides 279(H) 0 - 150 mg/dL LAB CHEMISTRY METHOD 09/18/2024 6:37 PM EST [facility] HDL 45 >=40 mg/dL LAB CHEMISTRY METHOD 09/18/2024 6:37 PM EST [facility] LDL Calculated 70 0 - 100 mg/dL LAB CHEMISTRY METHOD 09/18/2024 6:37 PM EST [facility] VLDL Cholesterol Josemanuel 55.8 mg/dL LAB CHEMISTRY METHOD 09/18/2024 6:37 PM EST [facility] Non HDL Chol. (LDL+VLDL) 126 <145 mg/dL LAB CHEMISTRY METHOD 09/18/2024 6:37 PM EST [facility] Chol/HDL Ratio 3.8 0.0 - 4.4 LAB CHEMISTRY METHOD 09/18/2024 6:37 PM EST [facility] Blood Venous blood specimen / Unknown Venipuncture / Unknown 09/18/2024 3:40 PM EST 09/18/2024 3:40 PM EST us Roxy FOUNTAIN LAB BLOOD ORDERABLES Final Re sult [facility] [address] [place] [address], [place] [phone] * Microalbumin creatinine urine ratio (09/18/2024 3:40 PM EST) Creatinine, Urine 75.0 mg/dL LAB CHEMISTRY METHOD 09/18/2024 7:01 PM [facility] Microalb, Ur 8.3 0.0 - 29.0 mg/L LAB CHEMISTRY METHOD 09/18/2024 7:01 PM EST [facility] Microalb/Creat Ratio 11 <30 mg/g creat LAB CHEMISTRY METHOD 09/18/2024 7:01 PM EST [facility] Urine Urine specimen from urethra / Unknown Non-blood Collection / Unknown 09/18/2024 3:40 PM EST 09/18/2024 3:40 PM EST us Roxy [facility] LAB URINE ORDERABLES Final Re sult [facility] [address] [place] [address], [place] [phone] * Hm Depression Screening (03/21/2024) HM Depression Screening abstracted Historical Provider HEALTH MAINTENANCE Final Result * SCREENING MAMMOGRAPHY BI 2-VIEW BREAST INC CAD (11/17/2022 4:19 PM EDT) Anatomical Region Laterality Modality Radiographic Luzma ging 11/05/2021 1:16 PM EDT Narrative 11/18/2022 1:35 PM EDT This is a summary report. The complete report is available in the patient's medical record. If you cannot access the medical record, please contact the sending organization for a detailed fax or copy. Full field digital screening tomosynthesis mammography, reviewed with CAD and compared to previous. The breasts are composed of fatty and fibroglandular tissue. No suspicious mass, architectural distortion or suspicious calcifications are identified. IMPRESSION: : No mammographic evidence of malignancy. BIRADS 1-Negative; N. 5 year breast cancer risk assessment 3.0 % Lifetime breast cancer risk assessment 8.7 % Breast cancer risk category Low (<15%) Procedure Note Palak Lyon MD - 08/22/2023 This is a summary report. The complete report is available in thepatient's medical record. If you cannot access the medical record, pleasecontact the sending organization for a detailed fax or copy. Full field digital screening tomosynthesis mammography, reviewed with CADand compared to previous. The breasts are composed of fatty andfibroglandular tissue. No suspicious mass, architectural distortion orsuspicious calcifications are identified. IMPRESSION: : No mammographic evidence of malignancy. BIRADS 1-Negative; N. 5 year breast cancer risk assessment 3.0 % Lifetime breast cancer risk assessment 8.7 % Breast cancer risk category Low (<15%) us Gaby Ngo MD IMG XR PROCEDURES Final Result * DXA BONE DENSITY STUDY 1+ SITS AXIAL SKEL (11/12/2021 1:37 PM EDT) Anatomical Region Laterality Modality Bone Densitometr y 07/01/2021 12:1 0 PM EST Narrative 11/13/2021 5:13 PM EDT BONE DENSITY Lumbar Spine T-score is +1.2 (SD relative to 20-29 y/o adult) Z-score is +3.2 (SD relative to age matched peers) This is normal by criteria defined by the WHO. Left Hip T-score is +0.5 Z-score is +1.9 This is normal by criteria defined by the WHO.. Impression: Based on the World Health Organization criteria, Papo Griggs should be classified as having normal bone density. [facility] Department of Internal Medicine recommends using National Osteoporosis Foundation (NOF) guidelines in treatment decisions related to osteoporosis. NOF guidelines suggest considering treatment for postmenopausal women and men aged 50 or older presenting with the following: History of hip or vertebral fracture. T-score less than or equal to -2.5 (DXA) at the femoral neck, total hip, or spine, after appropriate evaluation to exclude secondary causes. Low bone mass (T-score between -1.0 and -2.5 at the femoral neck or spine) AND a 10-year probability of a hip fracture greater than or equal to 3% OR a 10-year probability of a major osteoporosis-related fracture greater than or equal to 20% based on the [place]-adapted WHO algorithm Please note that all treatment decisions require clinical judgment and consideration of individual patient factors, including patient preferences, co-morbidities, previous drug use, risk factors not captured in the FRAX model (e.g., frailty, falls, vitamin D deficiency, increased bone turnover, interval significant decline in bone density) and possible under- or over-estimation of fracture risk by FRAX. Procedure Note Juan Miguel Ingram MD - 07/06/2022 BONE DENSITY Lumbar Spine T-score is +1.2 (SD relative to 20-29 y/o adult) Z-score is +3.2 (SD relative to age matched peers) This is normal by criteria defined by the WHO. Left Hip T-score is +0.5 Z-score is +1.9 This is normal by criteria defined by the WHO.. Impression: Based on the World Health Organization criteria, Papo Griggs shouldbe classified as having normal bone density. [facility] Department of Internal Medicine recommendsusing National Osteoporosis Foundation (NOF) guidelines in treatmentdecisions related to osteoporosis. NOF guidelines suggest consideringtreatment for postmenopausal women and men aged 50 or older presentingwith the following: History of hip or vertebral fracture. T-score less than or equal to -2.5 (DXA) at the femoral neck, total hip,or spine, after appropriate evaluation to exclude secondary causes. Low bone mass (T-score between -1.0 and -2.5 at the femoral neck or spine)AND a 10-year probability of a hip fracture greater than or equal to 3% ORa 10-year probability of a major osteoporosis-related fracture greaterthan or equal to 20% based on the [place]-adapted WHO algorithm Please note that all treatment decisions require clinical judgment andconsideration of individual patient factors, including patientpreferences, co-morbidities, previous drug use, risk factors not capturedin the FRAX model (e.g., frailty, falls, vitamin D deficiency, increasedbone turnover, interval significant decline in bone density) and possibleunder- or over-estimation of fracture risk by FRAX. Tim [facility] IMG DXA PROCEDURES Final Result * Hepatitis C Screening (01/17/2014) [facility] Hepatitis C Screening abstracted Historical Provider HEALTH MAINTENANCE Final Result from Last 3 Months or Most Recently Relevant to Health Maintenance Insurance [employer] MEDICARE Care Teams Stock Layer Relationship Specialty Start Date End Date Gaby Ngo MD [address] [place] [address] PCP - General Internal Medicine 07/23/15
--- OUTSIDE RECORDS SUMMARY | 2025-06-22 14:40 | XMS_ITS | Encounter Summary ---
[facility] Organization [facility] Address [address] [place] [address] Care Team Providers Care Painter Aircraft Name Role Phone Gaby Ngo MD Primary Care Provider Encounter Details Date Type Department Care Team ([facility] Contact Info) Description 04/21/2025 Results Follow-Up Gastroenterology - [place] [address] [facility] 175 [facility] [address] [place] [id number] Bennett Rodriguez MD [address] [facility] [address] [place] [address] Social History Tobacco Use Types Packs/Day Years Used Date Smoking Tobacco: Never Smokeless Tobacco: Never Alcohol Use Standard Drinks/Week Comments Yes 0 [...] AM EDT Sexual Orientation Not on file documented as of this encounter Progress Notes * Bennett Rodriguez MD - 04/21/2025 4:26 PM EDT The polyp(s) that were removed during your colonoscopy were precancerous, but benign. Fortunately, we removed them and therefore, they will not cause any more problems in the future. Based on the number, the size, and the features of the polyp(s) removed, I no longer recommend a follow-up colonoscopy in the future unless you have other issues. I would like to personally thank you for allowing us to take care of you. Please don't hesitate to call us for any questions or concerns. RegardsJonnathan MD Board Certified Gastroenterology and Internal Medicine Transplant Hepatology [facility] documented in this encounter Plan of Treatment Upcoming Encounters Date Type Department Care Team (Late st Contact Info) Description 06/25/2025 11:00 AM EST Office Visit Adult [address] [phone] Roxy Geller PA [address] [place] [address] 09/20/2025 3:00 PM EST Office Visit Obstetrics and Gynecology - [address] [phone] Gabrielle Ortega, [address] 10/02/2025 12:45 PM EDT Office Visit [address] [phone] Gaby Ngo MD [address] [place] [address] documented as of this encounter Visit Diagnoses Not on filedocumented in this encounter Care Teams Painter Aircraft Relationship Specialty Start Date End Date Gaby Ngo MD [address] [place] [address] PCP - General Internal Medicine 07/23/15 documented as of this encounter
--- OUTSIDE RECORDS SUMMARY | 2025-06-22 14:40 | XMS_ITS | Encounter Summary ---
Author Organization [facility] Address [address] [place] [address] Care Team Providers Care Timber Setter Name Role Phone Gaby Ngo MD Primary Care Provider [phone] Encounter Details Date Type Department Care Team (Late Contact Info) Description 05/02/2025 Results Follow-Up Adult Medicine [address] [phone] Roxy Geller PA [address] [place] [address] Social History Tobacco Use Types Packs/Day Years [...] on file documented as of this encounter Plan of Treatment Upcoming Encounters Date Type Department Care Team ([facility] Contact Info) Description 06/25/2025 11:00 AM EST Office Visit Adult Medicine [address] [phone] Roxy Geller PA [address] [place] [address] 09/20/2025 3:00 PM EST Office Visit Obstetrics and Gynecology [address] [phone] Gabrielle Ortega [address] 10/02/2025 12:45 PM EDT Office Visit Adult Medicine [address] [phone] Gaby Ngo MD [address] [place] [address] documented as of this encounter Visit Diagnoses Not on filedocumented in this encounter Care Teams Timber Setter Relationship Specialty Start Date End Date Gaby Ngo MD [address] [place] [address] PCP - General Internal Medicine 07/23/15 documented as of this encounter
--- OUTSIDE RECORDS SUMMARY | 2025-06-22 14:40 | XMS_ITS | Continuity of Care Document ---
Author Organization [place] [facility] Address [address] [address] Care Team Providers Care Player Development Manager Name Role Phone DELMA VELA Primary Care Provider [phone] DELMA VELA Referring Provider DELMA VELA Primary Care Provider [phone] Assessment No assessment recorded. Plan of Treatment Reminders Order Date Submit Date Provider Last Modified By Organization Details Last Modified Time Details Appointments None record ed. Lab None record ed. Referral None record ed. Procedures None record ed. Surgeries None record ed. Imaging None record ed. Medication Orders None record ed. Patient TargetsNo targets recorded. Patient InstructionsNo instructions recorded. Reason for Referral None Reported. Results Created Date Observation Date Name Description Value Unit Range Abnormal Flag Note LastModifiedBy Organization Detail LastModifiedTime 04/24/2004/22/2025 MRI, brain + brain stem, w/wo contr ast [facility] Access ion Number : [id number] Patien t Name: Gala Galloway e Medica l Record Number : [id number] Date of : 1950 Date of Exam: 2024 Referr ing Physic ned: Devang Byers re Ear Nose [address] [place] [address] Exam: MR Brain (C-/C+ ) CPT 68622 Room Descri ption: [facility] Verio 3.0T MRI Brain W+W/O Contra st INDICA TION / CLINIC AL QUESTI ON: Left-s ided hearin g loss. TECHNI QUE: MRI of the brain with attent ion to the internet marketing analyst al audito ry canals was perfor med [...] abnorm al enhanc ement in the internet marketing analyst al audito ry canals or cerebe llopon [...] n the patien t?s sympto ms. WSN: [id number] Orderi ng Physic ned: Devang Byers P Electr onical ly Signed By: Awilda [email or web address] [facility] [address] [place], [address], 04/25/2025 16:19:38 05/23/20 25 08/27/2024 audio gram No observ ation record ed. [email or web address] Not Available 12/2024 10:16:52 Result Notes None recorded. 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 Procedures Surgical History Date Name Laterality Status Provider Name and Address Organization Details Recorded Time Comp Audio with Tymps & Reflexes - 01124 & 03329 completed ELIEZER PHILLIPS [address] [facility] [address], [place], [address], [facility] - [facility] 03/26/2025 10:14:51 Imaging Results None recorded. Procedure [...] Not Available Not Available Not Available Vitals None Recorded Social History None recorded. Functional Status None [...] ICD10 Code Diagnosis IMO Codes Diagnosis Note [id number] ELIEZER BISHOP CARROLL [place] [address] [facility],[address] [place] [address] 05/22/2025 13:05:19 05/24/2025 17:55:33 Sensorineural hearing loss of bilateral ears 092161561 H90.3 [id number] Health Concerns Section Related Observation LastModified by Organization Detai ls LastModified Time None Recorded Concern Status LastModified by Organization Details LastModified Time None Recorded Payers Encounter Date Sequence Insurance Name Policy Number Policy Rodriguez Covered Member ID Rodriguez Member ID Guarantor Name 05/22/2025 1 [facility] (MEDICARE REPLACEMENT/ ADVANTAGE - PPO) [id number] Dorisse Sangita Galloway [id number] Doris Galloway 05/22/2025 2 [place] [facility] Doris Galloway [id number] Doris Galloway Notes Date Note Type Note Provider Name and Address Organization Details Recorded Time 05/22/2025 text/html Pt was booked for an HAE. Unfortunately I was unaware that she had MH as a secondary insurance. Gave her a list of MH providers along with a copy of her HT & med clearance. [place] gave her card as well- she can call if she has any additional questions. ANN CHACKO, [facility] [address] [facility],[address] [address], [place], [address], [facility] - [facility] 05/22/2025 13:42:08 OBGyn Episode No OBEpisode recorded.
--- OUTSIDE RECORDS SUMMARY | 2025-06-22 14:40 | XMS_ITS | Data Portability ---
Author Organization [facility], [address] Address [address] [place] [address] Care Team Providers Care Poultry Raiser Name Role Phone [facility] Primary Care Provider Assessment No assessment recorded. Plan of Treatment Reminders Order Date Submit Date Provider Last Modified By Organization Details Last Modified Time Details Appointments None recorded. Lab None recorded. Referral None recorded. Procedures None recorded. Surgeries None recorded. Imaging XR, chest, 2 view 2022 023 [facility], [address] [place] [address], [id number], 3 17:32:08 Medication Orders Zithromax Z-Fran 250 mg tablet 2022 023 [facility]34, [address] [place] [address], [phone], 3 16:22:07 benzonatate 100 mg capsule 2022 023 [facility]63930, [address] [place] [address], [phone], 3 16:22:06 albuterol sulfate HFA 90 mcg/actuati on aerosol inhaler 2022 023 [facility]294, [address] [place], [place], [phone], 3 16:22:05 Patient TargetsNo targets recorded. Patient Instructions Encounter Date Encounter Id Patient Instructions Last Modified By Organization Details Last Modified Time 10/01/2022 [id number] cough: care instructions [email or web address] Not available 10/01/2022 16:04:35 Reason for Referral None Reported. Results Created Date Observation Date Name Description Value Unit Range Abnormal Flag Note LastModifiedBy Organization Detail LastModifiedTime 10/02/19 23 10/01/2022 XR, chest , 2 view No observ ation record ed. [email or web address] [facility] [address] [place], [place], [address], 10/01/2022 17:35:21 Result Notes None recorded. Problems Name Problem SNOMED Code Status Onset Date Resolution Date Notes Provider Name and Address Organization Details Recorded Time Hypertensive disorder 54409390 Active 2022 JOSHUA REILLY null, PA - [facility] 3 15:29:40 Hypercholestero lemia 59373427 Active 2022 JOSHUA LUPICA null, PA - [facility] 3 15:29:48 Diabetes mellitus 89844144 Active 2022 JOSHUA LUPICA null, PA - [facility] 3 15:29:55 Problem Notes None recorded. Procedures Surgical History Date Name Laterality Status Provider Name and Address Organization Details Recorded Time procedure on back completed JOSHUAKaira REILLY PA - [facility] 10/01/2022 15:31:03 procedure on toenail completed JOSHUA LUPICA PA - [facility] 10/01/2022 15:31:40 Imaging Results None recorded. Procedure Notes None recorded. Medical Equipment None Reported. Allergies No known drug allergies Medications Name Sig Start Date Stop Date Status Note LastModified by Organization Details LastModified Time atorvastati n 40 mg tablet TAKE 1 TABLET BY MOUTH AT BEDTIME active Not Available Not Available No t Available Zithromax Z-Fran 250 mg tablet TAKE 2 TABLETS (500 MG) BY ORAL ROUTE ONCE DAILY FOR 1 DAY THEN 1 TABLET (250 MG) BY ORAL ROUTE ONCE DAILY FOR 4 DAYS 2022 active Not Available Not Available Not Avai lable amoxicillin 500 mg tablet TAKE 1 TABLET BY MOUTH THREE TIMES DAILY UNTIL ALL TAKEN 10/01 completed Not Available Not Available Not Available benzonatate 100 mg capsule Take 1 capsule 3 times a day by oral route. 2022 active Not Available Not Available Not Avai lable metformin 1,000 mg tablet TAKE 1 TABLET BY MOUTH AT BEDTIME active Not Available Not Available No t Available metoprolol tartrate 50 mg tablet TAKE 1 TABLET BY MOUTH DAILY active Not Available Not Available No t Available omeprazole 20 mg capsule,del ayed release TAKE 2 CAPSULES BY MOUTH EVERY MORNING BEFORE BREAKFAST active Not Available Not Available No t Available lorazepam 1 mg tablet TAKE 1 TO 2 TABLETS BY MOUTH BEFORE PROCEDURE FOR CLAUSTROP HOBIA 10/01 completed Not Available Not Available Not Available oxycodone-a cetaminophe n 7.5 mg-325 mg tablet TAKE 1 TABLET BY MOUTH EVERY 8 HOURS NEEDED FOR PAIN. MAY TAKE 2 TABLETS AT BEDTIME. DO NOT EXCEED 5 TABLETS DAILY active Not Available Not Available No t Available albuterol sulfate HFA 90 mcg/actuati on aerosol inhaler Inhale 2 puffs every 4 hours by inhalatio n route. 2022 active Not Available Not Available Not Avai lable pregabalin 75 mg capsule TAKE 1 CAPSULE BY MOUTH TWICE DAILY 10/01 completed Not Available Not Available Not Available Vitals Date Recorded Body height Body mass index (BMI) Body weight Body temperature Respiratory rate Heart rate Oxygen saturation Systolic And Diastolic Provider Name and Address Organization Details Last Updated DateTime 3 182.88 cm 27.8 kg/m2 12114.4 4 g 97 [degF] 18 /min 102 /min 95 % 131/88 mm[Hg] JOSHUA REILLY PA - [facility] 3 15:33:22 Social History Question Answer Notes LastModified by [employer] ion Details LastModified Time Tobacco Smoking Status Never Smoker JOSHUA ward PA - [facility] 10/01/2022 15:30:37 Have You Recently Traveled Abroad? No [email or web address] Information not available 10/01/2022 Sex: Unknown Functional Status Question Answer Note LastModified by [employer] ion Details LastModified Time Do you use any illicit or recreational drugs? No Information not available 10/01/2022 Do you or have you ever used any other forms of tobacco or nicotine? No [email or web address] Information not available 10/01/2022 What is your level of alcohol consumption? None [email or web address] Information not available 10/01/2022 Mental Status None recorded. Family History Relationship Description Onset Age of this Age Resolved Age Notes LastModified by Organization Details LastModified Time Father No current problems or disability [email or web address] Not available 10/01 15:30:25 Mother No current problems or disability Not available 10/01 15:30:25 Medical History No medical history recorded. Gynecological HistoryNo gynecological history recorded. Obstetrics History GPAL:G 0 P 0 0 0 0 Past Encounters Encounter ID Performer Location Encounter Start Date Encounter Closed Date Diagnosis/Indication Diagnosis SNOMED-CT Code Diagnosis ICD10 Code Diagnosis IMO Codes Diagnosis Note [id number] [facility] [address] [address] 07/31/2021 17:19:23 07/31/2021 18:11:25 [id number] Ashish Kee DO _[facility] [address] [address] 10/01/2022 15:13:50 10/01/2022 16:27:19 Cough 29448967 R05.9 Given Hx and Sx will Rx Abx and albuterol Bethany n perles prn coughc/w mucinex prn congestion Humidified airrest, fluidstyle nol/ibu prn Patient advised to follow up as needed for worsening symptoms or no improvemen t. Discussed concerning red flags with patient and reasons to follow up in the Emergency Department urgently. Health Concerns Section Related Observation LastModified by Organization Detai ls LastModified Time None Recorded Concern Status LastModified by Organization Details LastModified Time None Recorded Advance Directives Directive None Recorded Payers Insurance Date Sequence Insurance Name Policy Number Policy Rodriguez Covered Member ID Rodriguez Member ID Guarantor Name 10/01/2022 1 [employer] (MEDICARE REPLACEMENT/A DVANTAGE - PPO) [id number] Doris Galloway [id number] Doris Galloway 02/22/2023 2 [place] [facility] Doris Galloway [id number] Doris Galloway 02/22/2023 1 [facility] (MEDICARE REPLACEMENT/A DVANTAGE - HMO) [id number] Doris Quesada Nilesh [id number] Doris Nilesh 01/19/2023 1 [facility] (PPO) [id number] Doris Sangita Galloway [id number] Doris Galloway Notes Date Note Type Note Provider Name and Address Organization Details Recorded Time 10/01/2022 text/html CongestionReport ed by Patient CoughReported by [email or web address] yo female c/o cough x 1 weeksaw PCP. Neg COVID, started on mucinex.minimal improvement nonsmokerno asthma + subjective fever+ chillsNo difficulty breathing or respiratory distressNo CPNo ear painNo sore throatNo Abdominal painNo nauseaNo vomitingNp diarrheaNo myalgiaNo fatigueNo rashNo HANo dizzinessNo recent travelNo known sick contacts Ashish Kee, DO [address] [place], [address], PA - [facility] 10/01/2022 16:22:28 OBGyn Episode No OBEpisode recorded.
--- OUTSIDE RECORDS SUMMARY | 2025-06-22 14:40 | XMS_ITS | Data Portability ---
Author Organization [place] - [facility], Allergy Address [address] [address] Care Team Providers Care Branch Retail Executive Name Role Phone DELMA VELA Primary Care Provider DELMA VELA Referring Provider DELMA EVLA Primary Care Provider [phone] Assessment Encounter Date Assessment Date Assessment LastModified [...] Patient is medically cleared for amplification bilaterally. [email or web address] Not available 03/26/2025 11:32:21 Plan of Treatment Reminders Order Date Submit Date Provider Last Modified By Organization Details Last Modified Time Details Appointments None recorded. Lab None recorded. Referral None recorded. Procedures None recorded. Surgeries None recorded. Imaging MRI, brain + internal auditory canal, w/wo contrast - MRI, BRAIN + INTERNAL AUDITORY CANAL, W/WO CONTRAST 2024 025 [email or web address] [facility] ([facility]), [address], [place], [address], 15:35:53 Medication Orders clonazepam 1 mg disintegrat ing tablet 2024 025 [id number], [address] [place], [place], [phone], 11:23:50 Patient TargetsNo targets recorded. Patient Instructions Encounter Date Encounter Id Patient Instructions Last Modified By Organization Details Last Modified Time 03/26/2025 [id number] Follow up with junior business analyst for further diagnostic testing and confirmation of findings. Avoid relying on hearing aid providers without specialized care for inner ear issues. [email or web address] Not available 03/26/2025 11:30:03 Please note: Parts [...] Flag Note LastModifiedBy Organization Detail LastModifiedTime 03/26/20 25 audio gram No observ ation record ed. BARCODE Not Available 2024 12:29:50 04/24/20 25 04/22/2025 MRI, brain + brain stem, w/wo contr ast [facility] Access ion Number : [id number] Name: Casey Galloway Record Number : [id number] Date of : 1950 Date of Exam: 2024 Referr ing Physic ned: Devang Byers re Ear Nose [address] [place] [address] Exam: MR Brain (C-/C+ ) CPT 32163 Room Descri ption: [facility] 3.0T MRI Brain W+W/O Contra st INDICA TION / CLINIC AL QUESTI ON: Left-s ided hearin g loss. TECHNI QUE: MRI of the brain with attent ion to the intern retail al audito ry canals was perfor med [...] or abnorm al enhanc ement in the intern retail al audito ry canals or cerebe llopon [...] n the patien t?s sympto ms. WSN: [id number] Orderi ng Physic ned: Devang Byers P Electr onical ly Signed By: Awilda coburn MD [email or web address] [facility] ([facility]) [address], [place], [address], 04/25/2025 16:19:38 05/23/20 25 08/27/2024 audio gram No observ ation record ed. [email or web address] Not Available 12/2024 10:16:52 Result Notes Documentation Provider Name and Address Organization Details Recorded Time Mri, Brain + Brain Stem, W/wo Contrast : [place] Accession Number: [id number] Patient Name: Doris Galloway Date of : 1950 Date of Exam: 04-22-2025 Referring Physician: Barber Byers Ear N[facility] [address] [place] [address] Exam: MR Brain (C-/C+) CPT 13676 Room Description: [facility] 3.0T MRI Brain W+W/O Contrast INDICATION / CLINICAL QUESTION: Left-sided hearing loss. TECHNIQUE: MRI of the brain with attention to the internal auditory canals was performed with and without contrast utilizing sagittal T1, axial T2, axial FLAIR, axial 3D T2 CUBE, axial and coronal T1, and post-contrast axial and coronal T1-weighted sequences. 9 mL of Elucirem was administered intravenously. COMPARISON: MRI of the brain, 08/25/2022. FINDINGS: IAC: There is no mass or abnormal enhancement in the internal auditory canals or cerebellopontine angles. Course and caliber of the 7th and 8th cranial nerves is normal bilaterally. Fluid signal is preserved in the inner ear structures bilaterally. Brainstem demonstrates normal signal. BRAIN and EXTRA-AXIAL SPACES: No significant abnormality of the visualized portions of the brain and extra-axial spaces. EXTRACRANIAL SOFT TISSUES: Right maxillary sinus retention cyst noted. Minimal fluid is seen in both mastoid tips. BONES: Visualized marrow signal is preserved. IMPRESSION: No retrocochlear abnormality to explain the patient?s symptoms. WSN: [id number] Ordering Physician: Barber Byers Electronically Signed By: Awilda ward [place] - [facility] 04/25/2025 16:19:38 Problems Name Problem SNOMED Code Status Onset Date Resolution Date Notes Provider Name and Address Organization Details Recorded Time Mixed conductive and sensorineural hearing loss, bilateral 463376419 Active 2024 SEKOU SMITH, ELIEZER [address] [address], [place], [address], [facility] - [facility] 5 10:14:59 Sensorineural hearing loss of bilateral ears 065671658 Active 2024 BARBER BYERS MD [address] [place] [address], [place], [address], [facility] 5 11:32:35 Problem Notes None recorded. Procedures Surgical History Date Name Laterality Status Provider Name and Address Organization Details Recorded Time 09/09/202 5 Comp Audio with Tymps & Reflexes - 70809 & 92218 completed SEKOU SMITH, AUD 100 [facility] [address], [place], [address], [facility] - [facility] 03/26/2025 10:14:51 Imaging Results None recorded. Procedure [...] Details Last Updated DateTime 03/26/2025 182.88 cm 86628.74 g Lesly Ramos [place] - [facility] 03/26/2025 10:22:16 Social History None recorded. Functional Status None recorded. Mental Status None recorded. Family History Nothing Reported. Medical History Condition Response High Cholesterol Y Migraines Y Diabetes Y Gynecological HistoryNo gynecological history recorded. Obstetrics History GPAL:G 0 P 0 0 0 0 Past Encounters Encounter ID Performer Location Encounter Start Date Encounter Closed Date Diagnosis/Indication Diagnosis SNOMED-CT Code Diagnosis ICD10 Code Diagnosis IMO Codes Diagnosis Note [id number] BARBER BYERS MD [facility] [address] [address] 03/26/2025 09:34:01 03/26/2025 11:31:23 Mixed conductive and sensorineural hearing loss, bilateral 772787936 H90.6 [id number] Sensorineu ral hearing loss of bilateral ears 806785197 H90.3 [id number] Audiologic al evaluation results: 03/26/2025Ri ght ear:Mild sloping to a moderate sensorineu ral hearing loss with excellent word recognitio n.Left ear:Modera te sloping to profound sensorineu ral hearing loss with excellent word recognitio n. Tympanomet ry:Right Ear:Type ALeft Ear:Type A Acoustic Reflex Testing: Signal to theRight Ear(uncros sed): AbsentSign al to theLeft Ear(uncros sed):Absen t [id number] ELIEZER BISHOP CARROLL - [address] [address] 05/22/2025 13:05:19 05/24/2025 17:55:33 Sensorineural hearing loss of bilateral ears 084211877 H90.3 [id number] Health Concerns Section Related Observation LastModified by Organization Detai ls LastModified Time None Recorded Concern Status LastModified by Organization Details LastModified Time None Recorded Advance Directives Directive None Recorded Payers Insurance Date Sequence Insurance Name Policy Number Policy Rodriguez Covered Member ID Rodriguez Member ID Guarantor Name 05/19/2025 1 [facility] (MEDICARE REPLACEMENT/ ADVANTAGE - PPO) [id number] Doris Galloway [id number] Dorisse Galloway 05/10/2025 1 [place] [employer] Doris Galloway [id number] Doris Galloway 05/10/2025 2 [place] [employer] Doris Galloway [id number] Doris Galloway 05/10/2025 2 [place] [facility] Doris Galloway [id number] Doris Galloway 05/19/2025 2 [place] [facility] Dorisse Galloway [id number] Doris Galloway Notes Date Note Type Note [...] she experienced scarlet fever and rheumatic fever [id number] at age 17, which has affected her memory of earlier years. She occasionally feels her ear is blocked but has not experienced pain. She previously attempted using hydrogen peroxide drops for relief. She was referred to this clinic by a computer forensic specialist who identified an inner ear problem and recommended evaluation by an wearing apparel shaker. BARBER BYERS MD [address], [address], [facility] 03/26/2025 11:33:35 05/22/2025 text/html Pt was booked for an HAE. Unfortunately I was unaware that she had MH as a secondary insurance. Gave her a list of MH providers along with a copy of her HT & med clearance. [place] gave [place] card as well- she can call if she has any additional questions. ELIEZER BISHOP [address] [address], [place], [address], [facility] [place] 05/22/2025 13:42:08 OBGyn Episode No OBEpisode recorded.
--- OUTSIDE RECORDS SUMMARY | 2025-06-22 14:40 | XMS_ITS | Clinical Summary ---
Author Organization [facility] Address [address] [id number] Phone Care Team Providers Care Firefighter Type One Name Role Phone Gaby Ngo MD Primary Care Provider [phone] Allergies No known active allergies Medications atorvastatin (LIPITOR) 80 MG tablet Active LORazepam (ATIVAN) 0.5 MG tablet Active oxyCODONE-acetam inophen 7.5-325 mg TbBO Active albuterol (PROAIR HFA) 90 mcg/actuation inhaler Active venlafaxine (EFFEXOR) 37.5 MG tablet Active metoprolol succinate (TOPROL-XL) 25 MG 24 hr tablet Take 25 mg by mouth daily. 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 Not on deena e 11/12/2022 Are you concerned about learning? Not on file 11/12/2022 No 11/12/2022 No 11/12/2022 Digital Access Answer Date Recorded No 12/13/2022 No 12/13/2022 Reliable internet access at home? Not on file 12/13/2022 Device with a working camera? Not on file Comments Unknown Sex and Gender Information Value Date Recorded Sex Assigned at Not on file Legal Sex Female 9:59 PM EDT Gender Identity Not on file Sexual Orientation Not on file Last Filed Vital Signs Vital Sign Reading Time Taken Comments Blood Pressure 118/68 03/21/2018 11:30 AM EDT Pulse 70 03/21/2018 11:30 AM EDT Temperature - - Respiratory Rate - - Oxygen Saturation - - Inhaled Oxygen Concentration - - Weight 94.8 kg (209 lb) 03/21/2018 11:30 AM EDT Height 182.9 cm (6') 03/21/2018 11:30 AM EDT Body Mass Index 28.35 03/21/2018 11:30 AM EDT Plan of Treatment Health Maintenance Due Date Last Done Comments LIPID PANEL 1950 DEPRESSION SCREENING 1964 SMOKING Hx and SMOKELESS TOBACCO SCREENING 1965 HEPATITIS C SCREENING 1970 MAMMOGRAM 1992 COLOGUARD 1997 COLONOSCOPY 1997 COLORECTAL CANCER SCREENING 1997 FIT TEST 1997 FOBT 1997 SIGMOIDOSCOPY 1997 VIRTUAL COLONOSCOPY 1997 ZOSTER VACCINES (1 of 2) 2002 OSTEOPOROSIS SCREENING INITIAL (ONE-TIME) 2017 INFLUENZA VACCINE (#1) 2025 , 05/02/2019, 04/24/2018, Additional history exists COVID-19 VACCINE (2 - 2024- season) 2025 11/04/2020 RSV VACCINE (1 - 1-dose 75+ series) 09/25/2027 Adult Td,Tdap Booster 07/26/2029 07/26/2019 , 12/07/2017, 04/27/2014, Additional history exists PNEUMOCOCCAL VACCINES (50+ years) Completed 06/06/2019, 06/05/2018 HEPATITIS A VACCINES Aged Out No long er eligible based on patient's age to complete this topic HIB VACCINES Aged Out No longer eligi ble based on patient's age to complete this topic MENINGOCOCCAL VACCINES (ACWY) Aged Out No longer eligible based on patient's age to complete this topic MENINGOCOCCAL VACCINES (B) Aged Out N o longer eligible based on patient's age to complete this topic Medical Devices Not on file Insurance MEDICARE PART A & B [employer] NET PARTIAL MEDICARE PART A & B NET PARTIAL MEDICARE PART A & B NET PARTIAL MEDICARE PART A & B PARTIAL MEDICARE PART A & B [place] [employer] NET PARTIAL MEDICARE PART A & B PARTIAL MEDICARE PART A & B [employer] NET PARTIAL MEDICARE PART A & [place] [employer] NET PARTIAL MEDICARE PART A & B [facility] PARTIAL Care Teams Firefighter Type One Relationship Specialty Start Date End Date Gaby Ngo MD [address] [place] [address] PCP - General 07/21/17 Additional Source Comments The information contained in this document represents components of the legal health record. It is not the complete legal health record.[facility]
--- OUTSIDE RECORDS SUMMARY | 2025-06-22 14:40 | XMS_ITS ---
Author Name [facility] Organization Unknown Care Team Organization Name Specialty Phone Email Start Date End Da malinda [facility] 05/25/2022 03/05/2024
[2025-06-22 20:18] VITALS: BP 149/56; PULSE 86; RESP 16; TEMP 36.5; O2SAT 94
[2025-06-22 20:38] VITALS: BP 149/56; PULSE 86; RESP 16; TEMP 36.5; O2SAT 94
== END 2025-06-22 20:39 | disposition home or self-care (01) ==
PROVIDERS: Emergency Provider Emergency Medicine; PCP Internal Medicine
DX: S42.291A Other displaced fracture of upper end of right humerus, initial encounter for closed fracture (principal); R51.9 Headache, unspecified; M54.2 Cervicalgia; M25.511 Pain in right shoulder; M25.531 Pain in right wrist; M79.641 Pain in right hand; W19.XXXA Unspecified fall, initial encounter; Y93.01 Activity, walking, marching and hiking; Y92.9 Unspecified place or not applicable; Y99.8 Other external cause status
CPT/HCPCS: 70450; 72125; 73030; 73110; 73130; 96374; 96375; 99284; J2270; J2405

== ENCOUNTER → 2025-06-22 14:17 | Outpatient (BNV) | payer MEDICARE, MEDICAID, SELFPAY | PROVIDERS: Emergency Provider Emergency Medicine; PCP Internal Medicine; Visit Provider Student in an Organized Health Care Education/Training Program | DX: M47.812 Spondylosis without myelopathy or radiculopathy, cervical region (principal); M99.61 Osseous and subluxation stenosis of intervertebral foramina of cervical region; S09.90XA Unspecified injury of head, initial encounter; S42.211A Unspecified displaced fracture of surgical neck of right humerus, initial encounter for closed fracture; M19.041 Primary osteoarthritis, right hand; M25.541 Pain in joints of right hand; M79.631 Pain in right forearm; Z04.3 Encounter for examination and observation following other accident | CPT/HCPCS: 70450; 72125; 73030; 73110; 73130 ==